=== PATIENT | female | born 1945 | race Caucasian/White ===

== ENCOUNTER 2017-08-02 02:47 | Emergency (ER) | payer MEDICARE, BC ==
--- NOTE | 2017-08-02 03:09 | EDM.PDOC ---
ED HPI GENERAL MEDICAL PROBLEM - General Chief Complaint: Respiratory Problem Stated Complaint: SICK Time Seen by Provider: 08/02/17 03:03 Source of Information: Reports: Patient, Family, RN Notes Reviewed History Limitations: Reports: No Limitations - History of Present Illness INITIAL COMMENTS - FREE TEXT/NARRATIVE: 71-year-old female presents emergency department today with a complaint of shortness of breath, she has a known history of chronic obstructive pulmonary disease usually uses oxygen at night she states over the last couple days she has gotten progressively more short of breath difficult for her to complete a full sentence. Denies any fevers chest pain nausea vomiting Denies Pain Score (Numeric/FACES): 0 - Related Data Allergies Allergy/AdvReac Type Severity Reaction Status Date / Time acetaminophen [From Tylenol] Allergy Shortness Verified 08/02/17 02:56 of Breath Sulfa (Sulfonamide Allergy Cannot Verified 08/02/17 02:56 Antibiotics) Remember lactose AdvReac Diarrhea Verified 08/02/17 02:56 Home Meds: Home Meds Calcium Carbonate [Calcium] 600 mg PO BID 05/04/14 [History] Aspirin [Adult Low Dose Aspirin EC] 81 mg PO DAILY 01/03/16 [History] Citalopram Hydrobromide [Celexa] 20 mg PO DAILY 01/03/16 [History] Clopidogrel [Plavix] 75 mg PO DAILY 01/03/16 [History] Naproxen Sodium [Aleve] 440 mg PO BID PRN 01/03/16 [History] atorvaSTATin [Lipitor] 20 mg PO BEDTIME 01/03/16 [History] Past Medical History Cardiovascular History: Reports: High Cholesterol, PVD, Other (See Below) Other Cardiovascular History: Dyslipidemia, cardiac stenosis Respiratory History: Reports: COPD, SOB Gastrointestinal History: Reports: Cholelithiasis Musculoskeletal History: Reports: Other (See Below) Other Musculoskeletal History: Hip fracture Neurological History: Reports: CVA - Infectious Disease History Infectious Disease History: Reports: Chicken Pox - Past Surgical History Cardiovascular Surgical History: Reports: Carotid Endarterectomy Musculoskeletal Surgical History: Reports: Hip Replacement Social & Family History - Family History Oncologic: Reports: Breast, Lung - Tobacco Use Smoking Status *Q: Current Every Day Smoker Years of Tobacco use: 39 Packs/Tins Daily: 0.2 Used Tobacco, but Quit: No Second Hand Smoke Exposure: Yes - Alcohol Use Days Per Week of Alcohol Use: 0 - Recreational Drug Use Recreational Drug Use: No ED ROS GENERAL - Review of Systems Review Of Systems: See Below Constitutional: Denies: Fever, Chills HEENT: Reports: No Symptoms Respiratory: Reports: Shortness of Breath, Wheezing, Cough, Sputum Cardiovascular: Reports: No Symptoms GI/Abdominal: Reports: No Symptoms : Reports: No Symptoms Musculoskeletal: Reports: No Symptoms ED EXAM, GENERAL - Physical Exam Exam: See Below Exam Limited By: No Limitations General Appearance: Alert, Mild Distress Head: Atraumatic, Normocephalic Neck: Normal Inspection, Supple, Non-Tender, Full Range of Motion Respiratory/Chest: Chest Non-Tender, Decreased Breath Sounds, Rhonchi, Wheezing , Accessory Muscle Use Cardiovascular: Regular Rate, Rhythm, No Murmur GI/Abdominal: Soft, Non-Tender Course - Vital Signs Last Recorded V/S: Last Vital Signs Temp 98.8 F 08/02/17 03:03 Pulse 90 08/02/17 03:03 Resp 24 H 08/02/17 03:03 BP 116/83 08/02/17 03:03 Pulse Ox 94 L 08/02/17 03:03 - Orders/Labs/Meds Orders: Active Orders 24 hr Category Date Time Status RT Aerosol Therapy [RC] ASDIRECTED Care 08/02/17 03:21 Active Chest 2V [CR] Urgent Exams 08/02/17 03:06 Taken Labs: Laboratory Tests 08/02/17 08/02/17 Range/Units 03:25 03:25 WBC 11.7 H (4.5-11.0) K/uL RBC 4.05 (3.30-5.50) M/uL Hgb 12.5 (12.0-15.0) g/dL Hct 39.0 (36.0-48.0) % MCV 96 (80-98) fL MCH 31 (27-31) pg MCHC 32 (32-36) % Plt Count 293 (150-400) K/uL Neut % (Auto) 61 (36-66) % Lymph % (Auto) 24 (24-44) % Terry % (Auto) 10 H (2-6) % Eos % (Auto) 5 H (2-4) % Baso % (Auto) 1 (0-1) % Sodium 139 L (140-148) mmol/L Potassium 4.2 (3.6-5.2) mmol/L Chloride 104 (100-108) mmol/L Carbon Dioxide 29 (21-32) mmol/L Anion Gap 10.2 (5.0-14.0) mmol/L BUN 17 D (7-18) mg/dL Creatinine 1.0 (0.6-1.0) mg/dL Est Cr Clr Drug Dosing 38.37 mL/min Estimated GFR (MDRD) 55 L (>60) Glucose 110 H (74-106) mg/dL Calcium 8.2 L (8.5-10.1) mg/dL Total Bilirubin 0.3 (0.2-1.0) mg/dL AST 13 L (15-37) U/L ALT 10 L (12-78) U/L Alkaline Phosphatase 77 (46-116) U/L Troponin I < 0.017 (0.000-0.056) ng/mL Total Protein 8.0 (6.4-8.2) g/dL Albumin 3.0 L (3.4-5.0) g/dL Globulin 5.0 H (2.3-3.5) g/dL Albumin/Globulin Ratio 0.6 L (1.2-2.2) Meds: Medications Discontinued Medications Generic Name Dose Route Start Last Admin Trade Name Freq PRN Reason Stop Dose Admin Albuterol/Ipratropium 3 ml 08/02/17 03:21 08/02/17 03:26 Duoneb 3.0-0.5 Mg/3 Ml NEB 08/02/17 03:22 3 ml ONETIME ONE Administration Departure - Departure Time of Disposition: 04:08 Disposition: Home, Self-Care 01 Condition: Fair Clinical Impression: COPD exacerbation - Discharge Information Referrals: Javed Ayala MD [Primary Care Provider] - Forms: ED Department Discharge Additional Instructions: Use the albuterol as needed for shortness of breath, take full course of antibiotics, Please followup with your primary care provider in 3-5 days if not better, please call return to the emergency department with worsening of symptoms. - My Orders Last 24 Hours: My Active Orders 08/02/17 03:06 Chest 2V [CR] Urgent 08/02/17 03:21 RT Aerosol Therapy [RC] ASDIRECTED - Assessment/Plan Last 24 Hours: My Active Orders 08/02/17 03:06 Chest 2V [CR] Urgent 08/02/17 03:21 RT Aerosol Therapy [RC] ASDIRECTED Plan: Assessment Acuity = acute Site and laterality = COPD exacerbation Etiology = unclear etiology Manifestations = hypoxia, dyspnea Location of injury = Home Lab values = WBC elevated 11.7 consistent leukocytosis, sodium low at 139 consistent hyponatremia albumin low at 2.0 consistent hypoalbuminemia, chest x- ray I did review films myself I cannot appreciate any acute process, the official read from radiology is pending Plan I did review lab work and chest x-ray results with her mother discharge home on doxycycline 7 day course in combination with albuterol inhaler have her follow- up with her primary care in 3-5 days for reevaluation discussed the possibilities of both short-term and long-term breathing treatments given her lung disease Patient was in agreement with the plan all questions were answered, they were instructed to return to the emergency department or call for worsening symptoms. This note was dictated using [employer] voice recognition software please call with any questions.
[2017-08-02] MEDS ORDERED: Albuterol/Ipratropium 3.0-0.5 MG/3 ML Neb Soln NEB ONE (03:21)
[2017-08-02 04:37] VITALS: BP 129/72
--- NOTE | 2017-08-05 08:22 | CR ---
Chest 2V HISTORY: Shortness of breath. COMPARISON: 01/03/2016. FINDINGS: Hyperinflation. The cardiac size is normal. No acute congestive change. No dense focal infi ltrate or effusion. Impression: Hyperinflation. No acute infiltrates.
== END 2017-08-02 04:50 | disposition home or self-care (01) ==
LOC: JP.ED 02:47
DX: J44.1 Chronic obstructive pulmonary disease with (acute) exacerbation (principal); E78.00 Pure hypercholesterolemia, unspecified; I73.9 Peripheral vascular disease, unspecified; Z96.649 Presence of unspecified artificial hip joint; F17.210 Nicotine dependence, cigarettes, uncomplicated; Z86.73 Personal history of transient ischemic attack (TIA), and cerebral infarction without residual deficits; Z98.890 Other specified postprocedural states; Z79.82 Long term (current) use of aspirin; Z79.899 Other long term (current) drug therapy; Z88.2 Allergy status to sulfonamides; Z91.011 Allergy to milk products; Z88.6 Allergy status to analgesic agent
CPT/HCPCS: 36415; 71020; 80053; 84484; 85025; 94640; 99284; J7620

== ENCOUNTER 2018-01-19 15:12 | Emergency (ER) | payer MEDICARE, BC ==
--- NOTE | 2018-01-19 16:27 | EDM.PDOC ---
ED HPI GENERAL MEDICAL PROBLEM - General Chief Complaint: Respiratory Problem Time Seen by Provider: 01/19/18 16:25 Source of Information: Reports: Patient History Limitations: Reports: No Limitations - History of Present Illness INITIAL COMMENTS - FREE TEXT/NARRATIVE: pt arrived with increased sob. She has no chest pain. She is coughing up green sputum. She has no pain when she takes a deep breath. Onset: Gradual, Other (past 2-3 daus. ) Duration: Hour(s): Location: Reports: Chest Associated Symptoms: Reports: Cough, Shortness of Breath, Other ( green sputum. ) - Related Data Allergies Allergy/AdvReac Type Severity Reaction Status Date / Time acetaminophen [From Tylenol] Allergy Shortness Verified 01/19/18 15:52 of Breath Sulfa (Sulfonamide Allergy Cannot Verified 01/19/18 15:52 Antibiotics) Remember lactose AdvReac Diarrhea Verified 01/19/18 15:52 Home Meds: Home Meds Aspirin [Adult Low Dose Aspirin EC] 81 mg PO DAILY 01/03/16 [History] Citalopram Hydrobromide [Celexa] 20 mg PO DAILY 01/03/16 [History] Clopidogrel [Plavix] 75 mg PO DAILY 01/03/16 [History] Naproxen Sodium [Aleve] 440 mg PO BID PRN 01/03/16 [History] atorvaSTATin [Lipitor] 20 mg PO BEDTIME 01/03/16 [History] Past Medical History HEENT History: Reports: Impaired Vision Cardiovascular History: Reports: High Cholesterol, PVD, Other (See Below) Other Cardiovascular History: Dyslipidemia, cardiac stenosis Respiratory History: Reports: Bronchitis, Recurrent, COPD, SOB Gastrointestinal History: Reports: Cholelithiasis 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: Musculoskeletal History: Reports: Other (See Below) Other Musculoskeletal History: Hip fracture Neurological History: Reports: CVA - Infectious Disease History Infectious Disease History: Reports: Chicken Pox - Past Surgical History HEENT Surgical History: Reports: Cataract Surgery, Tonsillectomy Cardiovascular Surgical History: Reports: Carotid Endarterectomy GI Surgical History: Reports: Appendectomy, Cholecystectomy, Colonoscopy, Hernia , Abdominal Female Surgical History: Reports: Breast Biopsy Musculoskeletal Surgical History: Reports: Hip Replacement Social & Family History - Family History Oncologic: Reports: Breast, Lung - Tobacco Use Smoking Status *Q: Current Every Day Smoker Years of Tobacco use: 40 Packs/Tins Daily: 0.5 Used Tobacco, but Quit: No Month Tobacco Last Used: January Second Hand Smoke Exposure: Yes - Caffeine Use Caffeine Use: Reports: Coffee - Alcohol Use Days Per Week of Alcohol Use: 0 - Recreational Drug Use Recreational Drug Use: No ED ROS GENERAL - Review of Systems Review Of Systems: See Below Constitutional: Reports: Malaise, Weakness HEENT: Reports: No Symptoms Respiratory: Reports: Shortness of Breath, Cough, Sputum Cardiovascular: Reports: No Symptoms Endocrine: Reports: No Symptoms GI/Abdominal: Reports: No Symptoms : Reports: No Symptoms ED EXAM, GENERAL - Physical Exam Exam: See Below Free Text/Narrative:: PT ARRIVED WITH A HISTORY OF HAVING INCREASED SOB AND BEING WHEEZY. sHE HAS BEEN RAISING GREEN SPUTUM. sHE HAS BEEN VERY SOB WITH ACTIVITY. sHE USES O2 WHEN SHE SLEEPS. B Exam Limited By: No Limitations General Appearance: Alert, Mild Distress Ears: Normal TMs Nose: Normal Inspection Throat/Mouth: Normal Inspection Head: Atraumatic Neck: Normal Inspection Respiratory/Chest: Decreased Breath Sounds, Rhonchi, Wheezing Cardiovascular: Regular Rate, Rhythm, Other (PT DOES NOT HAVE CHEST PAIN) GI/Abdominal: Soft, Non-Tender Rectal (Female) Exam: Deferred Back Exam: Normal Inspection Extremities: Other (PT DOES NOT HAVE EDEMA. ) Neurological: Alert, Oriented Psychiatric: Normal Affect Course - Vital Signs Last Recorded V/S: Last Vital Signs Temp 36.4 C 01/19/18 15:30 Pulse 75 01/19/18 15:52 Resp 28 H 01/19/18 15:52 BP 153/51 H 01/19/18 15:52 Pulse Ox 98 01/19/18 15:52 - Orders/Labs/Meds Orders: Active Orders 24 hr Category Date Time Status EKG Documentation Completion [RC] ASDIRECTED Care 01/19/18 17:16 Active RT Aerosol Therapy [RC] ASDIRECTED Care 01/19/18 18:36 Ordered Chest 2V [CR] Stat Exams 01/19/18 16:24 Taken cefTRIAXone [Rocephin] 1 gm Med 01/19/18 18:37 Ordered Sodium Chloride 0.9% [Normal Saline] 50 ml IV ONETIME EKG 12 Lead [EK] Routine Ther 01/19/18 17:15 Ordered Medication Orders Ceftriaxone Sodium 1 gm/ (Sodium Chloride) 50 mls @ 100 mls/hr IV ONETIME ONE Stop: 01/19/18 19:06 Labs: Laboratory Tests 01/19/18 01/19/18 01/19/18 Range/Units 16:34 16:34 17:10 WBC 9.9 (4.5-11.0) K/uL RBC 4.29 (3.30-5.50) M/uL Hgb 13.1 (12.0-15.0) g/dL Hct 41.2 (36.0-48.0) % MCV 96 (80-98) fL MCH 31 (27-31) pg MCHC 32 (32-36) % Plt Count 218 (150-400) K/uL Neut % (Auto) 76 H (36-66) % Lymph % (Auto) 15 L (24-44) % [place] % (Auto) 7 H (2-6) % Eos % (Auto) 1 L (2-4) % Baso % (Auto) 1 (0-1) % Sodium 136 L (140-148) mmol/L Potassium 4.4 (3.6-5.2) mmol/L Chloride 100 (100-108) mmol/L Carbon Dioxide 30 (21-32) mmol/L Anion Gap 10.4 (5.0-14.0) mmol/L BUN 16 (7-18) mg/dL Creatinine 0.9 (0.6-1.0) mg/dL Est Cr Clr Drug Dosing 39.99 mL/min Estimated GFR (MDRD) > 60 (>60) Glucose 90 (74-106) mg/dL Calcium 8.7 (8.5-10.1) mg/dL Total Bilirubin 0.5 D (0.2-1.0) mg/dL AST 16 (15-37) U/L ALT 14 (12-78) U/L Alkaline Phosphatase 65 (46-116) U/L Total Protein 7.3 (6.4-8.2) g/dL Albumin 3.2 L (3.4-5.0) g/dL Globulin 4.1 H (2.3-3.5) g/dL Albumin/Globulin Ratio 0.8 L (1.2-2.2) Urine Color Yellow Urine Appearance Slightly cloudy Urine pH 6.0 (4.5-8.0) Ur Specific [place] 1.020 (1.008-1.030) Urine Protein Negative (NEGATIVE) mg/dL Urine Glucose (UA) Normal (NEGATIVE) mg/dL Urine Ketones 15 H (NEGATIVE) mg/dL Urine Occult Blood Moderate (NEGATIVE) Urine Nitrite Negative (NEGATIVE) Urine Bilirubin Negative (NEGATIVE) Urine Urobilinogen Normal (NORMAL) mg/dL Ur Leukocyte Esterase Moderate (NEGATIVE) Urine RBC 5-10 H (0-5) Urine WBC 0-5 (0-5) Ur Epithelial Cells Moderate Amorphous Sediment Not seen Urine Bacteria Few Urine Mucus Moderate Meds: Medications Generic Name Dose Route Start Last Admin Trade Name Freq PRN Reason Stop Dose Admin Ceftriaxone Sodium 1 gm/ 50 mls @ 100 mls/hr 01/19/18 18:37 Sodium Chloride IV 01/19/18 19:06 ONETIME ONE Discontinued Medications Generic Name Dose Route Start Last Admin Trade Name Freq PRN Reason Stop Dose Admin Albuterol 2.5 mg 01/19/18 18:36 Proventil Neb Soln NEB 01/19/18 18:37 ONETIME ONE Triamcinolone Acetonide 60 mg 01/19/18 18:36 Kenalog-40 INJECT 01/19/18 18:37 ASDIRECTED ONE - Re-Assessments/Exams Free Text/Narrative Re-Assessment/Exam: 01/19/18 18:41 PT HAD A CHEST XRAY WHICH REVEALED NO DEFINITE INFILTRATE. . hER WBC IS NORMAL. SHE HAS HAD A NEBULIZER. 01/19/18 18:42 Departure - Departure Time of Disposition: 18:42 Disposition: Home, Self-Care 01 Condition: Fair Clinical Impression: Bronchitis, COPD exacerbation - Discharge Information Referrals: Javed Ayala MD [Primary Care Provider] - Forms: ED Department Discharge Care Plan Goals: PUSH FLUIDS, ZITHROMAX 500MG NOW AND 250 DAILY FOR THE NEXT 7 DAYS, ALBUTEROL INHALER 2 PUFFS TID, ROBITUSSIN AC 1 TSP Q 6H PRN FOR COUGH. RTC IF CONTINUED PROBLEMS. - My Orders Last 24 Hours: My Active Orders 01/19/18 16:24 Chest 2V [CR] Stat 01/19/18 18:36 RT Aerosol Therapy [RC] ASDIRECTED 01/19/18 18:37 cefTRIAXone [Rocephin] 1 gm Sodium Chloride 0.9% [Normal Saline] 50 ml IV ONETIME - Assessment/Plan Last 24 Hours: My Active Orders 01/19/18 16:24 Chest 2V [CR] Stat 01/19/18 18:36 RT Aerosol Therapy [RC] ASDIRECTED 01/19/18 18:37 cefTRIAXone [Rocephin] 1 gm Sodium Chloride 0.9% [Normal Saline] 50 ml IV ONETIME
[2018-01-19] MEDS ORDERED: Albuterol 0.083% 2.5 MG/3 ML Neb Soln NEB ONE (18:36)
[2018-01-19] MEDS ORDERED: cefTRIAXone 1 GM in Sodium Chloride 0.9% 50 ML IV ONE (18:37)
[2018-01-19 18:45] VITALS: BP 117/82
[2018-01-19] MEDS: Triamcinolone Acetonide 40 MG/ML 1 ML MDV INJECT ONE ×2 (18:54→18:56)
--- NOTE | 2018-01-20 09:09 | CR ---
Two-view chest Comparison: August 2017 There is hyperinflation. The heart and vascular structures are stable. There are chronic compression fractures of the thoracic spine. There is fibrosis in the left mid and lower lung [place]. Impression: 1. Hyperinflation. 2. No acute findings.
== END 2018-01-19 19:49 | disposition home or self-care (01) ==
LOC: JP.ED 15:12
DX: J44.1 Chronic obstructive pulmonary disease with (acute) exacerbation (principal); J40 Bronchitis, not specified as acute or chronic; E78.00 Pure hypercholesterolemia, unspecified; F17.210 Nicotine dependence, cigarettes, uncomplicated; Z88.6 Allergy status to analgesic agent; Z88.2 Allergy status to sulfonamides; Z91.011 Allergy to milk products; Z79.82 Long term (current) use of aspirin; Z79.899 Other long term (current) drug therapy
CPT/HCPCS: 36415; 71046; 80053; 81001; 85025; 93005; 94640; 96365; 96372; 99285; J0696; J3301; J7050; 99284

== ENCOUNTER 2019-10-23 10:57 | Emergency (ER) | payer MEDICARE ==
[2019-10-23 11:29] VITALS: BP 140/68; PULSE 80
--- NOTE | 2019-10-23 11:58 | EDM.PDOC ---
ED HPI GENERAL MEDICAL PROBLEM - General Chief Complaint: Laceration Stated Complaint: FELL AND HIT HEAD Time Seen by Provider: 10/23/19 11:45 Source of Information: Reports: Patient, Old Records, RN History Limitations: Reports: No Limitations - History of Present Illness INITIAL COMMENTS - FREE TEXT/NARRATIVE: 74 yo female was bending over to change a light bulb last night and lost her balance falling forward hitting the top of her head and directly impacting her lateral L shoulder. Denies LOC, nausea, or JAUREGUI. Has no pain at rest, but the L shoulder hurts when she tries to move that L arm. Was unable to get up, so slept on the floor until found by her daughter who brought her in for eval. Onset: Sudden Onset Date: 10/22/19 Onset Time: 22:00 Duration: Hour(s):, Constant Location: Reports: Upper Extremity, Left Quality: Reports: Ache Severity: Moderate Improves with: Reports: Rest Worsens with: Reports: Movement (L arm) Context: Reports: Trauma Associated Symptoms: Reports: No Other Symptoms Treatments PRODUCT SUPPORT REP: Reports: Other (see below) (none) left shoulder Pain Score (Numeric/FACES): 0 - Related Data Allergies Allergy/AdvReac Type Severity Reaction Status Date / Time acetaminophen [From Tylenol] Allergy Shortness Verified 10/23/19 11:18 of Breath Sulfa (Sulfonamide Allergy Cannot Verified 10/23/19 11:18 Antibiotics) Remember lactose AdvReac Diarrhea Verified 10/23/19 11:18 Home Meds: Home Meds Aspirin [Adult Low Dose Aspirin EC] 81 mg PO DAILY 01/03/16 [History] Citalopram Hydrobromide [Celexa] 20 mg PO DAILY 01/03/16 [History] Clopidogrel [Plavix] 75 mg PO DAILY 01/03/16 [History] Naproxen Sodium [Aleve] 440 mg PO BID PRN 01/03/16 [History] atorvaSTATin [Lipitor] 20 mg PO BEDTIME 01/03/16 [History] Albuterol Sulfate [Proair Hfa] 1 - 2 puff IH Q4H PRN 10/14/19 [History] Albuterol/Ipratropium [DuoNeb 3.0-0.5 MG/3 ML] 3 ml IH TID PRN 10/14/19 [History ] Past Medical History HEENT History: Reports: Impaired Vision Cardiovascular History: Reports: High Cholesterol, PVD, Other (See Below) Other Cardiovascular History: Dyslipidemia, cardiac stenosis Respiratory History: Reports: Bronchitis, Recurrent, COPD, SOB, Other (See Below ) Other Respiratory History: O2 at 2L Gastrointestinal History: Reports: Cholelithiasis 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: Musculoskeletal History: Reports: Other (See Below) Other Musculoskeletal History: Hip fracture Neurological History: Reports: CVA Oncologic (Cancer) History: Reports: Breast Dermatologic History: Reports: Other (See Below) Other Dermatologic History: Dry Skin - Infectious Disease History Infectious Disease History: Reports: Shingles - Past Surgical History HEENT Surgical History: Reports: Cataract Surgery, Tonsillectomy Cardiovascular Surgical History: Reports: Carotid Endarterectomy GI Surgical History: Reports: Appendectomy, Cholecystectomy, Colonoscopy, Hernia , Abdominal Female Surgical History: Reports: Breast Biopsy, Mastectomy Musculoskeletal Surgical History: Reports: Hip Replacement Social & Family History - Family History Oncologic: Reports: Breast, Lung - Tobacco Use Smoking Status *Q: Former Smoker Used Tobacco, but Quit: Yes Month/Year Tobacco Last Used: 10/19 - Caffeine Use Caffeine Use: Reports: Tea - Recreational Drug Use Recreational Drug Use: No ED ROS GENERAL - Review of Systems Review Of Systems: See Below Constitutional: Reports: No Symptoms HEENT: Reports: No Symptoms Respiratory: Reports: No Symptoms Cardiovascular: Reports: No Symptoms Endocrine: Reports: No Symptoms GI/Abdominal: Reports: No Symptoms : Reports: No Symptoms Musculoskeletal: Reports: Shoulder Pain (left) Skin: Reports: Wound (top of her head, minor laceration) Neurological: Reports: No Symptoms ED EXAM, SKIN/RASH Exam: See Below Exam Limited By: No Limitations General Appearance: Alert, WD/WN, No Apparent Distress Eye Exam: Bilateral Eye: Normal Inspection Ears: Normal External Exam, Normal Canal, Hearing Grossly Normal Nose: Normal Inspection, No Blood Throat/Mouth: Normal Inspection, Normal Lips, Normal Oropharynx, Normal Voice, No Airway Compromise Head: Other (small vertex scalp laceration, no active bleeding or scalp swelling ) Respiratory/Chest: No Respiratory Distress, Lungs Clear, No Accessory Muscle Use , Decreased Breath Sounds (consistent with her smoking history/COPD) Cardiovascular: Regular Rate, Rhythm, No Edema Back Exam: Normal Inspection. No: CVA Tenderness (R), CVA Tenderness (L) Extremities: Limited Range of Motion (due to pain), Other (tenderness to the L clavicle, ecchymosis of the lateral deltoid.) Neurological: Alert, Oriented, CN II-XII Intact, Normal Cognition, No Motor/ Sensory Deficits Skin: Warm, Dry, Intact, No Rash, Ecchymosis (deltoid region. Also R flank, but no crepitus or pain with breathing, coughing.), Wound/Incision (small lac to scalp, about 0.8 cm.). No: Increased Warmth Location, Skin: Head (laceration), Other (bruising deltoid region) Associated features: Tenderness Course - Vital Signs Last Recorded V/S: Last Vital Signs Temp 36.9 C 10/23/19 11:28 Pulse 80 10/23/19 11:28 Resp 20 10/23/19 11:28 BP 140/68 10/23/19 11:28 Pulse Ox 99 10/23/19 11:28 - Orders/Labs/Meds Orders: Active Orders 24 hr Category Date Time Status Vaccines to be Administered [RC] PER UNIT ROUTINE Care 10/23/19 12:05 Active Clavicle Lt [CR] Stat Exams 10/23/19 11:52 Taken CULTURE URINE [RM] Stat Lab 10/23/19 12:48 Received Labs: Laboratory Tests 10/23/19 Range/Units 12:29 Urine Color Yellow (YELLOW) Urine Appearance Clear (CLEAR) Urine pH 7.0 (5.0-8.0) Ur Specific [place] 1.015 (1.008-1.030) Urine Protein Negative (NEGATIVE) mg/dL Urine Glucose (UA) Negative (NEGATIVE) mg/dL Urine Ketones 15 H (NEGATIVE) mg/dL Urine Occult Blood Trace-intact H (NEGATIVE) Urine Nitrite Negative (NEGATIVE) Urine Bilirubin Negative (NEGATIVE) Urine Urobilinogen 0.2 (0.2-1.0) EU/dL Ur Leukocyte Esterase Trace H (NEGATIVE) Urine RBC 0-5 (0-5) Urine WBC 5-10 H (0-5) Ur Epithelial Cells Few Amorphous Sediment Not seen Urine Bacteria Moderate Urine Mucus Not seen Meds: Medications Discontinued Medications Generic Name Dose Route Start Last Admin Trade Name Freq PRN Reason Stop Dose Admin Diphtheria/Tetanus/Acell Pertussis 0.5 ml 10/23/19 12:05 10/23/19 12:34 Adacel IM 10/23/19 12:06 0.5 ml .ONCE ONE Administration - Radiology Interpretation Free Text/Narrative:: X-ray of L clavicle-neg X-ray of L shoulder-neg Departure - Departure Time of Disposition: 13:00 Disposition: Home, Self-Care 01 Condition: Fair Clinical Impression: Fall in elderly patient Contusion of left deltoid region Qualifiers: Encounter type: initial encounter Qualified Code(s): S40.012A - Contusion of left shoulder, initial encounter Scalp laceration Qualifiers: Encounter type: initial encounter Qualified Code(s): S01.01XA - Laceration without foreign body of scalp, initial encounter Contusion, flank Qualifiers: Encounter type: initial encounter Qualified Code(s): S30.1XXA - Contusion of abdominal wall, initial encounter - Discharge Information *PRESCRIPTION DRUG MONITORING PROGRAM REVIEWED*: No *COPY OF PRESCRIPTION DRUG MONITORING REPORT IN PATIENT CORY: No Referrals: Javed Ayala MD [Primary Care Provider] - Forms: ED Department Discharge Additional Instructions: Take acetaminophen as needed for pain relief. Wear the sling for L arm support as needed. If you cannot move your left shoulder normally by next /Friday then see your provider for recheck(? rotator cuff injury). We cultured your urine due to the presence of a few white blood cells, if an infection is identified we will contact you. - My Orders Last 24 Hours: My Active Orders 10/23/19 11:52 Clavicle Lt [CR] Stat 10/23/19 12:05 Vaccines to be Administered [RC] PER UNIT ROUTINE 10/23/19 12:48 CULTURE URINE [RM] Stat - Assessment/Plan Last 24 Hours: My Active Orders 10/23/19 11:52 Clavicle Lt [CR] Stat 10/23/19 12:05 Vaccines to be Administered [RC] PER UNIT ROUTINE 10/23/19 12:48 CULTURE URINE [RM] Stat
[2019-10-23] MEDS ORDERED: Diphtheria,Pertussis(Acell),Tetanus Vaccine 0.5 ML SDV IM ONE (12:05)
--- NOTE | 2019-10-23 12:53 | CRLCR ---
INDICATION: fall COMPARISON: None. FINDINGS: Three views of the left shoulder demonstrate mild osteopenia. Normal alignment. The glenohumeral and AC joints are intact. Skin diego project over the right lower thorax. Soft tissues are unremarkable. IMPRESSION: No acute osseous abnormality. Dictated by Jcarlos Linares MD @ 10/23/2019 12:52:33 PM Dictated by: Jcarlos Linares MD @ 10/23/2019 12:52:39 (Electronically Signed)
[2019-10-23] MEDS ORDERED: Bacitracin Oint 1 GM U/D Packet TOP ONE (12:54)
--- NOTE | 2019-10-23 13:21 | CRLCR ---
Indication: Fall. Technique: Left clavicle two views. Comparison: Left shoulder same day. Findings: No acute fracture or dislocation. Bone demineralization, as before. No additional osseous abnormality. Soft tissues as imaged are unremarkable. Impression: No acute osseous abnormality. Dictated by Damien Turner MD @ Oct 23 2019 1:18PM Signed by Dr. Damien Turner @ Oct 23 2019 1:21PM
== END 2019-10-23 13:31 | disposition home or self-care (01) ==
LOC: JP.ED 10:57
DX: S01.01XA Laceration without foreign body of scalp, initial encounter (principal); S40.012A Contusion of left shoulder, initial encounter; S30.1XXA Contusion of abdominal wall, initial encounter; E78.00 Pure hypercholesterolemia, unspecified; J44.9 Chronic obstructive pulmonary disease, unspecified; Z79.82 Long term (current) use of aspirin; Z79.02 Long term (current) use of antithrombotics/antiplatelets; Z86.73 Personal history of transient ischemic attack (TIA), and cerebral infarction without residual deficits; Z79.899 Other long term (current) drug therapy; Z87.891 Personal history of nicotine dependence; Z88.6 Allergy status to analgesic agent; Z88.2 Allergy status to sulfonamides; Z91.011 Allergy to milk products; Z23 Encounter for immunization; W01.10XA Fall on same level from slipping, tripping and stumbling with subsequent striking against unspecified object, initial encounter; Y93.89 Activity, other specified
CPT/HCPCS: 73000-LT; 73030-LT; 81001; 87086; 90471; 90715; 99283; 99283-25

== ENCOUNTER 2021-01-21 19:44 | Emergency (ER) | payer MEDICARE ==
[2021-01-21 20:16] VITALS: BP 128/55; PULSE 71
[2021-01-21] MEDS ORDERED: cefTRIAXone 1 GM Vial IM ONE (21:20)
--- NOTE | 2021-01-21 21:24 | EDM.PDOC ---
ED HPI GENERAL MEDICAL PROBLEM - General Chief Complaint: Skin Complaint Stated Complaint: BOILS/CONCERNS ABOUT SEPSIS BECAUSE OF COPD Time Seen by Provider: 01/21/21 21:26 Source of Information: Reports: Patient History Limitations: Reports: No Limitations - History of Present Illness INITIAL COMMENTS - FREE TEXT/NARRATIVE: pt arrived with a nmarkedly swollen rt facial area. This is very tender. This looks like a early abcess but not ready to drain. Onset: Gradual, Other ( last 2 days. ) Duration: Hour(s): Location: Reports: Face Associated Symptoms: Reports: Other ( facial infection) Right Cheek Pain Score (Numeric/FACES): 5 - Related Data Allergies Allergy/AdvReac Type Severity Reaction Status Date / Time acetaminophen [From Tylenol] Allergy Shortness Verified 01/21/21 20:20 of Breath Sulfa (Sulfonamide Allergy Cannot Verified 01/21/21 20:20 Antibiotics) Remember lactose AdvReac Diarrhea Verified 01/21/21 20:20 Home Meds: Home Meds Aspirin [Adult Low Dose Aspirin EC] 81 mg PO DAILY 01/03/16 [History] Citalopram Hydrobromide [Celexa] 20 mg PO DAILY 01/03/16 [History] Clopidogrel [Plavix] 75 mg PO DAILY 01/03/16 [History] Naproxen Sodium [Aleve] 440 mg PO BID PRN 01/03/16 [History] atorvaSTATin [Lipitor] 20 mg PO BEDTIME 01/03/16 [History] Albuterol Sulfate [Proair Hfa] 1 - 2 puff IH Q4H PRN 10/14/19 [History] Albuterol/Ipratropium [DuoNeb 3.0-0.5 MG/3 ML] 3 ml IH TID PRN 10/14/19 [History] Past Medical History HEENT History: Reports: Impaired Vision Cardiovascular History: Reports: High Cholesterol, PVD, Other (See Below) Other Cardiovascular History: Dyslipidemia, cardiac stenosis Respiratory History: Reports: Bronchitis, Recurrent, COPD, SOB, Other (See Below) Other Respiratory History: O2 at 2L Gastrointestinal History: Reports: Cholelithiasis CLINIC MGR History: Reports: Musculoskeletal History: Reports: Other (See Below) Other Musculoskeletal History: Hip fracture Neurological History: Reports: CVA Oncologic (Cancer) History: Reports: Breast Dermatologic History: Reports: Other (See Below) Other Dermatologic History: Dry Skin - Infectious Disease History Infectious Disease History: Reports: Shingles - Past Surgical History HEENT Surgical History: Reports: Cataract Surgery, Tonsillectomy Cardiovascular Surgical History: Reports: Carotid Endarterectomy GI Surgical History: Reports: Appendectomy, Cholecystectomy, Colonoscopy, Hernia, Abdominal Female Surgical History: Reports: Breast Biopsy, Mastectomy Musculoskeletal Surgical History: Reports: Hip Replacement Social & Family History - Family History Oncologic: Reports: Breast, Lung - Tobacco Use Tobacco Use Status *Q: Former Tobacco User Used Tobacco, but Quit: Yes Month/Year Tobacco Last Used: 2020 - Caffeine Use Caffeine Use: Reports: None - Recreational Drug Use Recreational Drug Use: No ED ROS GENERAL - Review of Systems Review Of Systems: See Below Constitutional: Reports: No Symptoms HEENT: Reports: Other ( swelling of rt facial area. ) Respiratory: Reports: Shortness of Breath, Other ( chronic copd) Cardiovascular: Reports: No Symptoms Endocrine: Reports: No Symptoms GI/Abdominal: Reports: No Symptoms : Reports: No Symptoms Musculoskeletal: Reports: No Symptoms Skin: Reports: Other ( abcess in the rt axilla and rt facial area. ) ED EXAM, SKIN/RASH Exam: See Below Text/Narrative:: pt arrived with marked swelling of the rt fascial area. Exam Limited By: No Limitations General Appearance: Alert, Anxious, Moderate Distress Ears: Normal TMs Nose: Normal Inspection Throat/Mouth: Normal Inspection Head: Atraumatic, Facial Swelling, Other (pt is very tender and has sig swellin of rt facial area. ) Neck: Normal Inspection Respiratory/Chest: No Respiratory Distress Cardiovascular: Regular Rate, Rhythm GI/Abdominal: Soft, Non-Tender Rectal (Female) Exam: Normal Exam Back Exam: Normal Inspection Extremities: Other (pt has abcess formation in the rt axilla. ) Course - Vital Signs Last Recorded V/S: Last Vital Signs Temp 36.6 C 01/21/21 20:17 Pulse 71 01/21/21 20:17 Resp 16 01/21/21 20:17 BP 128/55 L 01/21/21 20:17 Pulse Ox 98 01/21/21 20:17 - Orders/Labs/Meds Meds: Medications Discontinued Medications Generic Name Dose Route Start Last Admin Trade Name Freq PRN Reason Stop Dose Admin Ceftriaxone Sodium 1 gm 01/21/21 21:20 Rocephin IM 01/21/21 21:21 ONETIME ONE Lidocaine HCl 5 ml 01/21/21 21:21 Xylocaine-Mpf 1% INJECT 01/21/21 21:22 ONETIME ONE - Re-Assessments/Exams Free Text/Narrative Re-Assessment/Exam: 01/21/21 21:30 pt was given rocephen 1 gm im. Departure - Departure Time of Disposition: 21:21 Disposition: Home, Self-Care 01 Condition: Fair Clinical Impression: Facial abscess, Abscess, axilla - Discharge Information Referrals: Javed Ayala MD [Primary Care Provider] - Forms: ED Department Discharge Care Plan Goals: moist warm packs to rt facial area, -- use warm packs frequently, appt with Dr Ayala friday. this may need to be opened. clindomycin 300mg tid push fluids. Sepsis Event Note (ED) - Evaluation Sepsis Screening Result: No Definite Risk - Focused Exam Vital Signs: Vital Signs Temp Pulse Resp BP Pulse Ox 01/21/21 20:17 36.6 C 71 16 128/55 L 98 01/21/21 20:15 36.6 C 71 16 128/55 L 98
== END 2021-01-21 21:57 | disposition home or self-care (01) ==
LOC: JP.ED 19:44
DX: L02.01 Cutaneous abscess of face (principal); L02.411 Cutaneous abscess of right axilla; E78.00 Pure hypercholesterolemia, unspecified; J44.9 Chronic obstructive pulmonary disease, unspecified; Z86.73 Personal history of transient ischemic attack (TIA), and cerebral infarction without residual deficits; Z87.891 Personal history of nicotine dependence; Z88.6 Allergy status to analgesic agent; Z88.2 Allergy status to sulfonamides; Z91.011 Allergy to milk products; Z79.02 Long term (current) use of antithrombotics/antiplatelets; Z79.82 Long term (current) use of aspirin; Z79.899 Other long term (current) drug therapy
CPT/HCPCS: 96372; 99283; J0696

== ENCOUNTER 2021-07-11 20:42 | Inpatient (IN) | payer MEDICARE ==
[2021-07-11] MEDS ORDERED: Albuterol 0.083% 2.5 MG/3 ML Neb Soln NEB ONE (21:57)
[2021-07-11] MEDS ORDERED: Sodium Chloride 0.9% 1,000 ML IV SCH (22:15)
[2021-07-11] MEDS ORDERED: Doxycycline 100 MG in Sodium Chloride 0.9% 100 ML IV SCH (22:45)
--- NOTE | 2021-07-12 00:07 | EDM.PDOC ---
ED HPI GENERAL MEDICAL PROBLEM - General Chief Complaint: Respiratory Problem Stated Complaint: SOB, HISTORY OF COPD Time Seen by Provider: 07/11/21 21:51 Source of Information: Reports: Patient, Family (Daughter Rani) History Limitations: Reports: Altered Mental Status (Daughter reports has been confused today which is not normal) - History of Present Illness INITIAL COMMENTS - FREE TEXT/NARRATIVE: chief complaint: shortness of breath This is a 75 year old female presents to the ER with Daughter Rani, who gives report of today illness. Mrs. Guzman lives alone and has a SENIOR ANALYST DEVELOPER for 4 hours 3 times a week. Today when check on her Mom after work- she was confused, lethargic, oxygen saturation were 77 % on 2liter nasal canula. She was given nebulizer treatments without improved. Her Daughter brought her to the ER for evaluation. Onset of symptoms- Friday night- 5 days ago had shortness of breath, smokes 4 cigarettes per day, has daily home oxygen at 2 liter [place] last meal at 3:30 pm ate a piece of toast last - this afternoon Last Doctor visit- seen 4 days ago- for ear infection- given Augment 875 mg po bid history of MRSA infection of ear canal Onset: Gradual Onset Date: 07/07/21 Duration: Getting Worse Location: Reports: Chest, Generalized Quality: Reports: Ache Severity: Mild Improves with: Reports: None Worsens with: Reports: None Context: Reports: Other (COPD with continue Tobacco use.) Associated Symptoms: Reports: Confusion, Fever/Chills (temp on 100 today), Loss of Appetite, Malaise, Shortness of Breath, Weakness Treatments 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 Treatments - Related Data Allergies Allergy/AdvReac Type Severity Reaction Status Date / Time acetaminophen [From Tylenol] Allergy Shortness Verified 07/11/21 21:31 of Breath Sulfa (Sulfonamide Allergy Cannot Verified 07/11/21 21:31 Antibiotics) Remember lactose AdvReac Diarrhea Verified 07/11/21 21:31 Home Meds: Home Meds Aspirin [Adult Low Dose Aspirin EC] 81 mg PO DAILY 01/03/16 [History] Citalopram Hydrobromide [Celexa] 20 mg PO DAILY 01/03/16 [History] Clopidogrel [Plavix] 75 mg PO DAILY 01/03/16 [History] atorvaSTATin [Lipitor] 20 mg PO BEDTIME 01/03/16 [History] Albuterol Sulfate [Proair Hfa] 1 - 2 puff IH Q4H PRN 10/14/19 [History] Albuterol/Ipratropium [DuoNeb 3.0-0.5 MG/3 ML] 3 ml IH Q4H PRN 10/14/19 [History] Amoxicillin/Clavulanate K [Augmentin 875-125 MG] 1 tab PO BID 07/11/21 [History] Calcium Carb/Vit D3/Minerals [Calcium 600+D Plus Minerals] 1 tab PO BID 07/11/21 [History] Multivit with Calcium,Iron,Min [One Daily Women's] 1 tab PO DAILY 07/11/21 [History] traMADol [Ultram] 1 tab PO Q6H PRN 07/11/21 [History] Past Medical History HEENT History: Reports: Impaired Vision Cardiovascular History: Reports: High Cholesterol, PVD, Other (See Below) Other Cardiovascular History: Dyslipidemia, cardiac stenosis Respiratory History: Reports: Bronchitis, Recurrent, COPD, SOB, Other (See B elow) Other Respiratory History: O2 at 2L Gastrointestinal History: Reports: Cholelithiasis 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: 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: Musculoskeletal History: Reports: Osteoporosis, Other (See Below) Other Musculoskeletal History: Hip fracture, right jaw fracture Neurological History: Reports: CVA Oncologic (Cancer) History: Reports: Breast Dermatologic History: Reports: Other (See Below) Other Dermatologic History: Dry Skin - Infectious Disease History 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, Other, Shingles - Past Surgical History HEENT Surgical History: Reports: Cataract Surgery, Tonsillectomy Cardiovascular Surgical History: Reports: Carotid Endarterectomy GI Surgical History: Reports: Appendectomy, Cholecystectomy, Colonoscopy, Hernia, Abdominal Female Surgical History: Reports: Breast Biopsy, Mastectomy Musculoskeletal Surgical History: Reports: Hip Replacement Social & Family History - Family History Family Medical History: No Pertinent Family History Oncologic: Reports: Breast, Lung - Tobacco Use Tobacco Use Status *Q: Current Every Day Tobacco User Years of Tobacco use: 60 Packs/Tins Daily: 0.2 - Caffeine Use Caffeine Use: Reports: None - Recreational Drug Use Recreational Drug Use: No - Living Situation & Occupation Living situation: Reports: ( 5 years ago, lives alone with SENIOR ANALYST DEVELOPER assistance 3 times a week. Has 3 adult children. Daughter Rani assist with care decisions.) ED ROS GENERAL - Review of Systems Review Of Systems: See Below Constitutional: Reports: Fever, Chills, Malaise, Weakness, Fatigue, Decreased Appetite HEENT: Reports: Glasses, Other (upper and lower dentures) Respiratory: Reports: Shortness of Breath, Wheezing, Pleuritic Chest Pain, Cough, Sputum Cardiovascular: Reports: No Symptoms Endocrine: Reports: Fatigue GI/Abdominal: Reports: No Symptoms : Reports: No Symptoms Musculoskeletal: Reports: No Symptoms Skin: Reports: No Symptoms Neurological: Reports: No Symptoms Psychiatric: Reports: No Symptoms Hematologic/Lymphatic: Reports: No Symptoms Immunologic: Reports: No Symptoms ED EXAM, GENERAL - Physical Exam Exam: See Below Exam Limited By: Respiratory Distress General Appearance: Alert, Mild Distress, Thin (bony, very thin age appearance), Other (raspy voice. speaking in short sentences.) Eye Exam: Bilateral Eye: EOMI, PERRL Ears: Normal External Exam, Other (right ear canal with copious amount of pale discharge-tender to exam) Ear Exam: Right Ear: Discharge, Tenderness, Left Ear: TM normal Nose: Normal Inspection, Normal Mucosa, No Blood Throat/Mouth: Normal Inspection, Normal Lips, Normal Teeth, Normal Gums, Normal Oropharynx, No Airway Compromise. No: Normal Voice (raspy voice) Head: Atraumatic, Normocephalic Neck: Normal Inspection, Supple, Non-Tender, Full Range of Motion Respiratory/Chest: Decreased Breath Sounds, Wheezing (bilateral), Accessory Muscle Use, Prolonged Expiration Cardiovascular: Normal Peripheral Pulses, Regular Rate, Rhythm, No Edema, No Gallop Peripheral Pulses: 2+: Radial (L), Radial (R), Dorsalis Pedis (L), Dorsalis Pedis (R) GI/Abdominal: Normal Bowel Sounds, Soft, Non-Tender, No Organomegaly, No Distention, No Abnormal Bruit, No Mass (Female) Exam: Deferred Rectal (Female) Exam: Deferred Back Exam: Normal Inspection, Full Range of Motion Extremities: Normal Inspection, Normal Range of Motion, Non-Tender, Normal Capillary Refill, No Pedal Edema Neurological: Alert, Oriented, CN II-XII Intact, Normal Cognition, Normal Gait, Normal Reflexes, No Motor/Sensory Deficits Psychiatric: Normal Affect, Normal Mood Skin Exam: Warm, Dry, Intact, Normal Color, No Rash Lymphatic: No Adenopathy Course - Vital Signs Last Recorded V/S: Last Vital Signs Temp 98.2 F 07/11/21 21:37 Pulse 72 07/11/21 23:19 Resp 18 07/11/21 23:19 BP 112/37 L 07/11/21 23:19 Pulse Ox 92 L 07/11/21 23:19 - Orders/Labs/Meds Orders: Active Orders 24 hr Category Date Time Status Cardiac Monitoring Discontinue [RC] Click to Edit Care 07/11/21 21:58 Active RT Aerosol Therapy [RC] ASDIRECTED Care 07/11/21 21:59 Active Vital Signs [RC] Q1H Care 07/11/21 22:40 Active Chest 1V Frontal [CR] Urgent Exams 07/11/21 21:58 Taken CULTURE BLOOD [BC] Urgent Lab 07/11/21 22:35 Received CULTURE BLOOD [BC] Urgent Lab 07/11/21 23:00 Received UA W/MICROSCOPIC [URIN] Urgent Lab 07/11/21 21:58 Ordered Doxycycline [Vibramycin] 100 mg Med 07/11/21 22:45 Active Sodium Chloride 0.9% [Normal Saline] 100 ml IV Q12H Sodium Chloride 0.9% [Normal Saline] 1,000 ml Med 07/11/21 22:15 Active IV ASDIRECTED cefTRIAXone [Rocephin] 1 gm Med 07/11/21 23:00 Active Sodium Chloride 0.9% [Normal Saline] 50 ml IV Q24H Blood Culture x2 Reflex Set [OM.PC] Urgent Oth 07/11/21 21:57 Ordered Medication Orders Sodium Chloride (Normal Saline) 1,000 mls @ 125 mls/hr IV ASDIRECTED DEXTER Last Admin: 07/11/21 23:10 Dose: 125 mls/hr Documented by: ASUNCION Ceftriaxone Sodium 1 gm/ (Sodium Chloride) 50 mls @ 100 mls/hr IV Q24H DEXTER Doxycycline Hyclate 100 mg/ (Sodium Chloride) 100 mls @ 100 mls/hr IV Q12H DEXTER Last Admin: 07/11/21 23:17 Dose: 100 mls/hr Documented by: AUSNCION Labs: Laboratory Tests 07/11/21 07/11/21 07/11/21 Range/Units 22:50 22:50 22:50 WBC 10.1 (4.5-11.0) K/uL RBC 3.86 (3.30-5.50) M/uL Hgb 12.0 D (12.0-15.0) g/dL Hct 38.5 (36.0-48.0) % MCV 100 H (80-98) fL MCH 31 (27-31) pg MCHC 31 L (32-36) % Plt Count 233 (150-400) K/uL Neut % (Auto) 73.7 H (36-66) % Lymph % (Auto) 18.6 L (24-44) % [place] % (Auto) 5.8 (2-6) % Eos % (Auto) 1.3 L (2-4) % Baso % (Auto) 0.6 (0-1) % ABG Hemoglobin (12.0-16.0) g/dL ABG Oxyhemoglobin % ABG Carboxyhemoglobin (0.0-1.6) % ABG Methemoglobin % VBG pH (7.350-7.450) VBG pCO2 mm/Hg VBG pO2 mm/Hg VBG HCO3 mmol/L VBG Total CO2 mmol/L VBG O2 Saturation VBG O2 Content %vol VBG Base Excess mm/L O2 Delivery Device Sodium 134 L (140-148) mmol/L Potassium 5.2 (3.6-5.2) mmol/L Chloride 97 L (100-108) mmol/L Carbon Dioxide 31 (21-32) mmol/L Anion Gap 11.2 (5.0-14.0) mmol/L BUN 28 H D (7-18) mg/dL Creatinine 1.0 (0.6-1.0) mg/dL Est Cr Clr Drug Dosing 34.38 mL/min Estimated GFR (MDRD) 54 L (>60) Glucose 85 (74-106) mg/dL Lactic Acid 1.2 (0.4-2.0) mmol/L Calcium 8.6 (8.5-10.1) mg/dL Magnesium 2.2 (1.8-2.4) mg/dL Total Bilirubin 0.3 (0.2-1.0) mg/dL AST 16 (15-37) U/L ALT 17 (12-78) U/L Alkaline Phosphatase 69 (46-116) U/L C-Reactive Protein (0.0-0.3) mg/dL Total Protein 7.5 (6.4-8.2) g/dL Albumin 2.9 L (3.4-5.0) g/dL Globulin 4.6 H (2.3-3.5) g/dL Albumin/Globulin Ratio 0.6 L (1.2-2.2) Amylase 45 (25-115) U/L Lipase 42 L (73-393) U/L 07/11/21 07/11/21 Range/Units 22:50 23:00 WBC (4.5-11.0) K/uL RBC (3.30-5.50) M/uL Hgb (12.0-15.0) g/dL Hct (36.0-48.0) % MCV (80-98) fL MCH (27-31) pg MCHC (32-36) % Plt Count (150-400) K/uL Neut % (Auto) (36-66) % Lymph % (Auto) (24-44) % [place] % (Auto) (2-6) % Eos % (Auto) (2-4) % Baso % (Auto) (0-1) % ABG Hemoglobin 11.9 L (12.0-16.0) g/dL ABG Oxyhemoglobin 54.7 % ABG Carboxyhemoglobin 1.2 (0.0-1.6) % ABG Methemoglobin 0.6 % VBG pH 7.383 (7.350-7.450) VBG pCO2 53.0 mm/Hg VBG pO2 31.9 mm/Hg VBG HCO3 30.9 mmol/L VBG Total CO2 28.4 mmol/L VBG O2 Saturation 55.7 VBG O2 Content 9.2 %vol VBG Base Excess 5.1 mm/L O2 Delivery Device Nasal cannula Sodium (140-148) mmol/L Potassium (3.6-5.2) mmol/L Chloride (100-108) mmol/L Carbon Dioxide (21-32) mmol/L Anion Gap (5.0-14.0) mmol/L BUN (7-18) mg/dL Creatinine (0.6-1.0) mg/dL Est Cr Clr Drug Dosing mL/min Estimated GFR (MDRD) (>60) Glucose (74-106) mg/dL Lactic Acid (0.4-2.0) mmol/L Calcium (8.5-10.1) mg/dL Magnesium (1.8-2.4) mg/dL Total Bilirubin (0.2-1.0) mg/dL AST (15-37) U/L ALT (12-78) U/L Alkaline Phosphatase (46-116) U/L C-Reactive Protein 2.17 H (0.0-0.3) mg/dL Total Protein (6.4-8.2) g/dL Albumin (3.4-5.0) g/dL Globulin (2.3-3.5) g/dL Albumin/Globulin Ratio (1.2-2.2) Amylase (25-115) U/L Lipase (73-393) U/L Meds: Medications Generic Name Dose Route Start Last Admin Trade Name Freq PRN Reason Stop Dose Admin Sodium Chloride 1,000 mls @ 125 mls/hr 07/11/21 22:15 07/11/21 23:10 Normal Saline IV 125 mls/hr ASDIRECTED DEXTER Administration Ceftriaxone Sodium 1 gm/ 50 mls @ 100 mls/hr 07/11/21 23:00 Sodium Chloride IV Q24H DEXTER Doxycycline Hyclate 100 mg/ 100 mls @ 100 mls/hr 07/11/21 22:45 07/11/21 23:17 Sodium Chloride IV 100 mls/hr Q12H DEXTER Administration Discontinued Medications Generic Name Dose Route Start Last Admin Trade Name Freq PRN Reason Stop Dose Admin Albuterol 2.5 mg 07/11/21 21:57 07/11/21 22:21 Albuterol 0.083% 2.5 Mg/3 Ml Neb Soln NEB 07/11/21 21:58 2.5 mg ONETIME ONE Administration - Re-Assessments/Exams Free Text/Narrative Re-Assessment/Exam: 07/12/21 discussed with Mrs. Guzman and Daughter Rani will do labs, xray, IV fluids, medications will plan to admit to hospital with COPD exacerbation rule out pneumonia not safe to discharge to home with her current events of today- low oxygen saturations, low grade fever, shortness of breath and confusion They both agree with plan of care. 07/12/21 00:23 chest xray no infiltrates noted labs WBC 07/12/21 00:25 will admit to [address] [place] [address] with COPD exacerbation and MRSA infection of right ear canal patient agrees with plan of care Departure - Departure Time of Disposition: 00:29 Disposition: Admitted As Inpatient 65 Condition: Fair Clinical Impression: COPD exacerbation, Infection of right inner ear, Tobacco dependence COPD (chronic obstructive pulmonary disease) Qualifiers: COPD type: unspecified COPD Qualified Code(s): J44.9 - Chronic obstructive pulmonary disease, unspecified - Discharge Information *PRESCRIPTION DRUG MONITORING PROGRAM REVIEWED*: Not Applicable *COPY OF PRESCRIPTION DRUG MONITORING REPORT IN PATIENT CORY: Not Applicable Referrals: PCP,None [Primary Care Provider] - Sepsis Event Note (ED) - Evaluation Sepsis Screening Result: No Definite Risk - Focused Exam Vital Signs: Vital Signs Temp Pulse Resp BP Pulse Ox 07/11/21 23:19 72 18 112/37 L 92 L 07/11/21 22:00 72 12 104/48 L 93 L 07/11/21 21:37 98.2 F 71 18 108/51 L 90 L 07/11/21 21:31 98.2 F 71 18 108/51 L 90 L - My Orders Last 24 Hours: My Active Orders 07/11/21 21:57 Blood Culture x2 Reflex Set [OM.PC] Urgent 07/11/21 21:58 Cardiac Monitoring Discontinue [RC] Click to Edit Chest 1V Frontal [CR] Urgent UA W/MICROSCOPIC [URIN] Urgent 07/11/21 21:59 RT Aerosol Therapy [RC] ASDIRECTED 07/11/21 22:15 Sodium Chloride 0.9% [Normal Saline] 1,000 ml IV ASDIRECTED 07/11/21 22:35 CULTURE BLOOD [BC] Urgent 07/11/21 22:40 Vital Signs [RC] Q1H 07/11/21 22:45 Doxycycline [Vibramycin] 100 mg Sodium Chloride 0.9% [Normal Saline] 100 ml IV Q12H 07/11/21 23:00 CULTURE BLOOD [BC] Urgent cefTRIAXone [Rocephin] 1 gm Sodium Chloride 0.9% [Normal Saline] 50 ml IV Q24H - Assessment/Plan Last 24 Hours: My Active Orders 07/11/21 21:57 Blood Culture x2 Reflex Set [OM.PC] Urgent 07/11/21 21:58 Cardiac Monitoring Discontinue [RC] Click to Edit Chest 1V Frontal [CR] Urgent UA W/MICROSCOPIC [URIN] Urgent 07/11/21 21:59 RT Aerosol Therapy [RC] ASDIRECTED 07/11/21 22:15 Sodium Chloride 0.9% [Normal Saline] 1,000 ml IV ASDIRECTED 07/11/21 22:35 CULTURE BLOOD [BC] Urgent 07/11/21 22:40 Vital Signs [RC] Q1H 07/11/21 22:45 Doxycycline [Vibramycin] 100 mg Sodium Chloride 0.9% [Normal Saline] 100 ml IV Q12H 07/11/21 23:00 CULTURE BLOOD [BC] Urgent cefTRIAXone [Rocephin] 1 gm Sodium Chloride 0.9% [Normal Saline] 50 ml IV Q24H
[2021-07-12] MEDS: cefTRIAXone 1 GM in Sodium Chloride 0.9% 50 ML IV SCH ×2 (00:13→22:32)
--- NOTE | 2021-07-12 00:53 | PCM.HP.2 ---
H&P History of Present Illness - General Date of Service: 07/11/21 Admit Problem/Dx: Admission Diagnosis/Problem Admission Diagnosis/Problem COPD, Severe chronic obstructive pulmonary disease Source of Information: Patient, Family (Daughter Rani) History Limitations: Reports: Altered Mental Status, Respiratory Distress - History of Present Illness Initial Comments - Free Text/Narative: INITIAL COMMENTS - FREE TEXT/NARRATIVE: chief complaint: shortness of breath This is a 75 year old female presents to the ER with Daughter Rani, who gives report of today illness. Mrs. Guzman lives alone and has a PHYSICIAN ASSISTANT CERTIFIED for 4 hours 3 times a week. Today when check on her Mom after work- she was confused, lethargic, oxygen saturation were 77 % on 2liter nasal canula. She was given nebulizer treatments without improved. Her Daughter brought her to the ER for evaluation. Onset of symptoms- Friday night- 5 days ago had shortness of breath, smokes 4 cigarettes per day, has daily home oxygen at 2 liter [place] last meal at 3:30 pm ate a piece of toast last - this afternoon Last Doctor visit- seen 4 days ago- for ear infection- given Augment 875 mg po bid history of MRSA infection of ear canal Onset of Symptoms: Reports: Today, Gradual Duration of Symptoms: Reports: Getting Worse Location: Reports: Generalized Quality: Reports: Ache, Burning Severity: Moderate Improves with: Reports: Medication Worsens with: Reports: None Context: Reports: Other (COPD) Associated Symptoms: Reports: Confusion, Cough, Fever/Chills, Loss of Appetite, Shortness of Breath, Weakness - Related Data Allergies/Adverse Reactions: Allergies Allergy/AdvReac Type Severity Reaction Status Date / Time acetaminophen [From Tylenol] Allergy Shortness Verified 07/11/21 21:31 of Breath Sulfa (Sulfonamide Allergy Cannot Verified 07/11/21 21:31 Antibiotics) Remember lactose AdvReac Diarrhea Verified 07/11/21 21:31 Home Medications: Home Meds Aspirin [Adult Low Dose Aspirin EC] 81 mg PO DAILY 01/03/16 [History] Citalopram Hydrobromide [Celexa] 20 mg PO DAILY 01/03/16 [History] Clopidogrel [Plavix] 75 mg PO DAILY 01/03/16 [History] atorvaSTATin [Lipitor] 20 mg PO BEDTIME 01/03/16 [History] Albuterol Sulfate [Proair Hfa] 1 - 2 puff IH Q4H PRN 10/14/19 [History] Albuterol/Ipratropium [DuoNeb 3.0-0.5 MG/3 ML] 3 ml IH Q4H PRN 10/14/19 [History] Amoxicillin/Clavulanate K [Augmentin 875-125 MG] 1 tab PO BID 07/11/21 [History] Calcium Carb/Vit D3/Minerals [Calcium 600+D Plus Minerals] 1 tab PO BID 07/11/21 [History] Multivit with Calcium,Iron,Min [One Daily Women's] 1 tab PO DAILY 07/11/21 [History] traMADol [Ultram] 1 tab PO Q6H PRN 07/11/21 [History] Past Medical History HEENT History: Reports: Impaired Vision Cardiovascular History: Reports: High Cholesterol, PVD, Other (See Below) Other Cardiovascular History: Dyslipidemia, cardiac stenosis Respiratory History: Reports: Bronchitis, Recurrent, COPD, SOB, Other (See Below) Other Respiratory History: O2 at 2L Gastrointestinal History: Reports: Cholelithiasis 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: Musculoskeletal History: Reports: Osteoporosis, Other (See Below) Other Musculoskeletal History: Hip fracture, right jaw fracture Neurological History: Reports: CVA Oncologic (Cancer) History: Reports: Breast Dermatologic History: Reports: Other (See Below) Other Dermatologic History: Dry Skin - Infectious Disease History 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, Other, Shingles - Past Surgical History HEENT Surgical History: Reports: Cataract Surgery, Tonsillectomy Cardiovascular Surgical History: Reports: Carotid Endarterectomy GI Surgical History: Reports: Appendectomy, Cholecystectomy, Colonoscopy, Hernia, Abdominal Female Surgical History: Reports: Breast Biopsy, Mastectomy Musculoskeletal Surgical History: Reports: Hip Replacement Social & Family History - Family History Family Medical History: No Pertinent Family History Oncologic: Reports: Breast, Lung - Tobacco Use Tobacco Use Status *Q: Current Every Day Tobacco User Years of Tobacco use: 60 Packs/Tins Daily: 0.2 - Caffeine Use Caffeine Use: Reports: None - Recreational Drug Use Recreational Drug Use: No - Living Situation & Occupation Living situation: Reports: ( 5 years ago, lives alone with PHYSICIAN ASSISTANT CERTIFIED assistance 3 times a week. Has 3 adult children. Daughter Rani assist with care decisions.) H&P Review of Systems - Review of Systems: Review Of Systems: See Below General: Reports: Other (reports worsen shortness of breath) HEENT: Reports: Ear Pain (right ear infection- start Augmentin 4 days ago. with MRSA infection), Glasses (reading glasses) Pulmonary: Reports: Shortness of Breath, Wheezing, Pleuritic Chest Pain, Cough Cardiovascular: Reports: No Symptoms Gastrointestinal: Reports: No Symptoms Genitourinary: Reports: No Symptoms Musculoskeletal: Reports: No Symptoms Skin: Reports: No Symptoms Psychiatric: Reports: Confusion (Daughter reports confusion today, now clear with oxygen and neb treatments.) Neurological: Reports: Confusion Hematologic/Lymphatic: Reports: No Symptoms Immunologic: Reports: No Symptoms Exam - Exam Exam: See Below - Vital Signs Vital Signs: Last Vital Signs Temp 98.2 F 07/11/21 21:37 Pulse 72 07/11/21 23:19 Resp 18 07/11/21 23:19 BP 112/37 L 07/11/21 23:19 Pulse Ox 92 L 07/11/21 23:19 Weight: 101 lb - Exam Quality Assessment: Supplemental Oxygen, DVT Prophylaxis General: Alert, Cooperative, Mild Distress, Other (very thin, fragile adult female. speaking in raspy voice in short sentence. ) HEENT: EOMI, Pupils Equal, Pupils Reactive, Other (right ear canal with copious thin fluid in ER). No: Mucosa Moist & [place] (mouth is dry) Neck: Supple, Trachea Midline Lungs: Decreased Breath Sounds, Wheezing Cardiovascular: Regular Rate, Regular Rhythm, Normal S1, Normal S2 GI/Abdominal Exam: Normal Bowel Sounds, Soft, Non-Tender, No Organomegaly, No Distention (Female) Exam: Deferred Rectal (Female) Exam: Deferred Back Exam: Normal Inspection Extremities: Normal Inspection, Normal Range of Motion, Non-Tender, No Pedal Edema, Normal Capillary Refill Peripheral Pulses: 2+: Radial (L), Radial (R) Skin: Warm, Dry Neurological: Cranial Nerves Intact, Reflexes Equal Bilateral, Strength Equal Bilateral Neuro Extensive - Mental Status: Alert, Normal Mood/Affect, Normal Cognition Psychiatric: Alert, Normal Affect, Normal Mood - Patient Data Lab Results Last 24 hrs: Laboratory Results - last 24 hr 07/11/21 07/11/21 07/11/21 Range/Units 22:50 22:50 22:50 WBC 10.1 (4.5-11.0) K/uL RBC 3.86 (3.30-5.50) M/uL Hgb 12.0 D (12.0-15.0) g/dL Hct 38.5 (36.0-48.0) % MCV 100 H (80-98) fL MCH 31 (27-31) pg MCHC 31 L (32-36) % Plt Count 233 (150-400) K/uL Neut % (Auto) 73.7 H (36-66) % Lymph % (Auto) 18.6 L (24-44) % [place] % (Auto) 5.8 (2-6) % Eos % (Auto) 1.3 L (2-4) % Baso % (Auto) 0.6 (0-1) % ABG Hemoglobin (12.0-16.0) g/dL ABG Oxyhemoglobin % ABG Carboxyhemoglobin (0.0-1.6) % ABG Methemoglobin % VBG pH (7.350-7.450) VBG pCO2 mm/Hg VBG pO2 mm/Hg VBG HCO3 mmol/L VBG Total CO2 mmol/L VBG O2 Saturation VBG O2 Content %vol VBG Base Excess mm/L O2 Delivery Device Sodium 134 L (140-148) mmol/L Potassium 5.2 (3.6-5.2) mmol/L Chloride 97 L (100-108) mmol/L Carbon Dioxide 31 (21-32) mmol/L Anion Gap 11.2 (5.0-14.0) mmol/L BUN 28 H D (7-18) mg/dL Creatinine 1.0 (0.6-1.0) mg/dL Est Cr Clr Drug Dosing 34.38 mL/min Estimated GFR (MDRD) 54 L (>60) Glucose 85 (74-106) mg/dL Lactic Acid 1.2 (0.4-2.0) mmol/L Calcium 8.6 (8.5-10.1) mg/dL Magnesium 2.2 (1.8-2.4) mg/dL Total Bilirubin 0.3 (0.2-1.0) mg/dL AST 16 (15-37) U/L ALT 17 (12-78) U/L Alkaline Phosphatase 69 (46-116) U/L C-Reactive Protein (0.0-0.3) mg/dL Total Protein 7.5 (6.4-8.2) g/dL Albumin 2.9 L (3.4-5.0) g/dL Globulin 4.6 H (2.3-3.5) g/dL Albumin/Globulin Ratio 0.6 L (1.2-2.2) Amylase 45 (25-115) U/L Lipase 42 L (73-393) U/L 07/11/21 07/11/21 Range/Units 22:50 23:00 WBC (4.5-11.0) K/uL RBC (3.30-5.50) M/uL Hgb (12.0-15.0) g/dL Hct (36.0-48.0) % MCV (80-98) fL MCH (27-31) pg MCHC (32-36) % Plt Count (150-400) K/uL Neut % (Auto) (36-66) % Lymph % (Auto) (24-44) % [place] % (Auto) (2-6) % Eos % (Auto) (2-4) % Baso % (Auto) (0-1) % ABG Hemoglobin 11.9 L (12.0-16.0) g/dL ABG Oxyhemoglobin 54.7 % ABG Carboxyhemoglobin 1.2 (0.0-1.6) % ABG Methemoglobin 0.6 % VBG pH 7.383 (7.350-7.450) VBG pCO2 53.0 mm/Hg VBG pO2 31.9 mm/Hg VBG HCO3 30.9 mmol/L VBG Total CO2 28.4 mmol/L VBG O2 Saturation 55.7 VBG O2 Content 9.2 %vol VBG Base Excess 5.1 mm/L O2 Delivery Device Nasal cannula Sodium (140-148) mmol/L Potassium (3.6-5.2) mmol/L Chloride (100-108) mmol/L Carbon Dioxide (21-32) mmol/L Anion Gap (5.0-14.0) mmol/L BUN (7-18) mg/dL Creatinine (0.6-1.0) mg/dL Est Cr Clr Drug Dosing mL/min Estimated GFR (MDRD) (>60) Glucose (74-106) mg/dL Lactic Acid (0.4-2.0) mmol/L Calcium (8.5-10.1) mg/dL Magnesium (1.8-2.4) mg/dL Total Bilirubin (0.2-1.0) mg/dL AST (15-37) U/L ALT (12-78) U/L Alkaline Phosphatase (46-116) U/L C-Reactive Protein 2.17 H (0.0-0.3) mg/dL Total Protein (6.4-8.2) g/dL Albumin (3.4-5.0) g/dL Globulin (2.3-3.5) g/dL Albumin/Globulin Ratio (1.2-2.2) Amylase (25-115) U/L Lipase (73-393) U/L Result Diagrams: 07/11/21 22:50 07/11/21 22:50 Sepsis Event Note - Evaluation Sepsis Screening Result: No Definite Risk - Focused Exam Vital Signs: Vital Signs Temp Pulse Resp BP Pulse Ox 07/11/21 23:19 72 18 112/37 L 92 L 07/11/21 22:00 72 12 104/48 L 93 L 07/11/21 21:37 98.2 F 71 18 108/51 L 90 L 07/11/21 21:31 98.2 F 71 18 108/51 L 90 L - Problem List (1) COPD exacerbation SNOMED Code(s): 432472091 ICD Code: J44.1 - CHRONIC OBSTRUCTIVE PULMONARY DISEASE W (ACUTE) EXACERBATION Status: Acute Priority: High Current Visit: Yes (2) Infection of right inner ear SNOMED Code(s): 176420264 ICD Code: H83.01 - LABYRINTHITIS, RIGHT EAR Status: Acute Priority: High Current Visit: Yes (3) Tobacco dependence SNOMED Code(s): 15264300 ICD Code: F17.200 - NICOTINE DEPENDENCE, UNSPECIFIED, UNCOMPLICATED Status: Acute Priority: High Current Visit: Yes Problem List Initiated/Reviewed/Updated: Yes Orders Last 24hrs: Active Orders 24 hr Category Date Time Status Patient Status Manage Transfer [TRANSFER] Routine ADT 07/12/21 00:33 Ordered Cardiac Monitoring Discontinue [RC] Click to Edit Care 07/11/21 21:58 Active RT Aerosol Therapy [RC] ASDIRECTED Care 07/11/21 21:59 Active Vital Signs [RC] Q1H Care 07/11/21 22:40 Active Chest 1V Frontal [CR] Urgent Exams 07/11/21 21:58 Taken CULTURE BLOOD [BC] Urgent Lab 07/11/21 22:35 Received CULTURE BLOOD [BC] Urgent Lab 07/11/21 23:00 Received UA W/MICROSCOPIC [URIN] Urgent Lab 07/11/21 21:58 Ordered Doxycycline [Vibramycin] 100 mg Med 07/11/21 22:45 Active Sodium Chloride 0.9% [Normal Saline] 100 ml IV Q12H Sodium Chloride 0.9% [Normal Saline] 1,000 ml Med 07/11/21 22:15 Active IV ASDIRECTED cefTRIAXone [Rocephin] 1 gm Med 07/11/21 23:00 Active Sodium Chloride 0.9% [Normal Saline] 50 ml IV Q24H Blood Culture x2 Reflex Set [OM.PC] Urgent Oth 07/11/21 21:57 Ordered Resuscitation Status Routine Resus Stat 07/12/21 00:36 Ordered Medication Orders Sodium Chloride (Normal Saline) 1,000 mls @ 125 mls/hr IV ASDIRECTED [facility] Last Admin: 07/11/21 23:10 Dose: 125 mls/hr Documented by: ASUNCION Ceftriaxone Sodium 1 gm/ (Sodium Chloride) 50 mls @ 100 mls/hr IV Q24H [facility] Last Admin: 07/12/21 00:13 Dose: 100 mls/hr Documented by: ASUNCION Doxycycline Hyclate 100 mg/ (Sodium Chloride) 100 mls @ 100 mls/hr IV Q12H [facility] Last Admin: 07/11/21 23:17 Dose: 100 mls/hr Documented by: ASUNCION Assessment/Plan Comment:: Assessment/Plan Comment:: ASSESSMENT AND PLAN OF CARE- COPD WITH EXACERBATION, RIGHT EAR INFECTION WITH MRSA, TOBACCO chief complaint: shortness of breath This is a 75 year old female presents to the ER with Daughter Rani, who gives report of today illness. Mrs. Guzman lives alone and has a PHYSICIAN ASSISTANT CERTIFIED for 4 hours 3 times a week. Today when check on her Mom after work- she was confused, lethargic, oxygen saturation were 77 % on 2liter nasal canula. She was given nebulizer treatments without improved. Her Daughter brought her to the ER for evaluation. Onset of symptoms- Friday night- 5 days ago had shortness of breath, smokes 4 cigarettes per day, has daily home oxygen at 2 liter [place] last meal at 3:30 pm ate a piece of toast last BM - this afternoon Last Doctor visit- seen 4 days ago- for ear infection- given Augment 875 mg po bid history of MRSA infection of ear canal ER workup shows elevated WBC 10.1, hgb 12.0, hct 38.5, PLT 233, Chemistry Na+ 134, K+ 5.2, Cl 97, anion gap 11.2, BUN 28, Cr 1.0, glucose 85, Co2 31, Amylase 45, lipase 42. Xray chest- no lobe infiltrates- Plan to hospital admission for further care and treatment. Patient agree with plan of care. COPD with exacerbation -Admit to [address] [place] [address] for further monitoring -IV Fluids for rehydration NS at 125 ml/hr -IV Antibiotic; Rocephin 1 gram IV every 24 hours -IV Doxy 100mg every 12 hours -oxygen to keep sats greater than 95% -IV Solumedrol 62.5 mg every 8 hours -schedule Duo nebs every 6 hours, Albuterol nebs every 4 hours prn -Advise to notify nurses of any chest pain or other symptoms -blood cultures x2 pending -And a.m. labs: CBC, BMP Right ear infection with MRSA -IV antibiotic will cover this -hold Augmentin -precautions Tobacco dependence- smokes 4 cigarettes per day -Nicotine patch 7 mg daily -encouraged to quit smoking Maintenance issues -Orders home meds: chronic medication -Nutrition: regular diet - lactose intolerant -Mars catheter -not indicated at this time -DVT - SCD -PPI; IV Protonix 40mg daily CODE STATUS: DNR/DNI Admission status: Admit to [address] [place] [address] Admission justification. This patient will be admitted for inpatient services and is medically appropriate meeting medical necessity for inpatient admission as outlined in my documentation. I reasonably expect the patient will require inpatient services that span. Time over 2 midnights. I reasonably expect this patient to be discharged or transferred within 96 hours after admission to the critical access hospital. Disposition: home with Family Primary care provider: Hospitalist: Dr. Pettit - Mortality Measure Prognosis:: Good
[2021-07-12] MEDS ORDERED: Ondansetron 4 MG Tab.DIS PO PRN (01:47)
[2021-07-12] MEDS ORDERED: Albuterol 0.083% 2.5 MG/3 ML Neb Soln NEB PRN ×3 (01:47→09:25)
[2021-07-12] MEDS ORDERED: Docusate Sodium 100 MG Cap PO PRN (01:47)
[2021-07-12] MEDS ORDERED: Bisacodyl 5 MG Tab PO PRN (01:47)
[2021-07-12] MEDS ORDERED: Ondansetron 4 MG/2 ML SDV IV PRN (01:47)
[2021-07-12] MEDS ORDERED: traMADol 50 MG Tab PO PRN (01:47)
[2021-07-12] MEDS: methylPREDNISolone Sodium Succinate 125 MG/2 ML SDV IV SCH ×2 (02:14→08:04)
[2021-07-12] MEDS: Morphine 2 MG/ML SYRINGE IVPUSH PRN ×2 (03:06→08:05)
[2021-07-12] MEDS ORDERED: Sodium Chloride 0.9% 1,000 ML IV SCH (05:00)
[2021-07-12] MEDS ORDERED: Albuterol/Ipratropium 3.0-0.5 MG/3 ML Neb Soln NEB SCH (06:00)
[2021-07-12] MEDS ORDERED: Albuterol/Ipratropium 3.0-0.5 MG/3 ML Neb Soln NEB PRN (07:32)
[2021-07-12] MEDS: Citalopram 20 MG Tab PO SCH (08:04)
[2021-07-12] MEDS: Aspirin 81 MG Tab.EC PO SCH (08:04)
[2021-07-12] MEDS: Clopidogrel 75 MG Tab PO SCH (08:04)
[2021-07-12] MEDS: Pantoprazole 40 MG Tab.CR PO SCH (08:06)
[2021-07-12] MEDS ORDERED: Pantoprazole 40 MG Vial IV SCH (09:00)
--- NOTE | 2021-07-12 09:08 | CR ---
CHEST: Portable 07/11/2021 at 11:33 PM CLINICAL HISTORY:SOB, COPD COMPARISON:2018 FINDINGS: Lungs are emphysematous. There is patchy density in the left lower lobe suspect for pneumonia. Heart size and pulmonary vascularity are normal. There is a minimal left effusion Impression: COPD Left lower lobe pneumonia. Minimal left pleural effusion
--- NOTE | 2021-07-12 09:26 | PCM.PN ---
- General Info Date of Service: 07/12/21 Subjective Update: No acute events overnight following admission. She is currently requiring about 3-1/2 to 4 L of supplemental oxygen. She feels that her breathing is improved c ompared to yesterday and she is breathing more comfortably. She does have a cough but does not produce sputum. No complaints of chest pain or nausea. Appetite is good. Energy is improving. She does desaturate quickly without her oxygen. Functional Status: Reports: Pain Controlled, Tolerating Diet - Review of Systems General: Reports: Weakness. Denies: Fever Pulmonary: Reports: Shortness of Breath, Cough - Patient Data Vitals - Most Recent: Last Vital Signs Temp 35.8 C L 07/12/21 07:00 Pulse 78 07/12/21 07:00 Resp 22 H 07/12/21 07:00 BP 98/41 L 07/12/21 07:00 Pulse Ox 92 L 07/12/21 07:48 Weight - Most Recent: 47.2 kg I&O - Last 24 Hours: Intake & Output 07/11/21 07/12/21 07/12/21 22:59 06:59 14:59 Intake Total 780 Output Total 0 Balance 780 Lab Results Last 24 Hours: Laboratory Results - last 24 hr 07/11/21 07/11/21 07/11/21 Range/Units 22:50 22:50 22:50 WBC 10.1 (4.5-11.0) K/uL RBC 3.86 (3.30-5.50) M/uL Hgb 12.0 D (12.0-15.0) g/dL Hct 38.5 (36.0-48.0) % MCV 100 H (80-98) fL MCH 31 (27-31) pg MCHC 31 L (32-36) % Plt Count 233 (150-400) K/uL Neut % (Auto) 73.7 H (36-66) % Lymph % (Auto) 18.6 L (24-44) % [place] % (Auto) 5.8 (2-6) % Eos % (Auto) 1.3 L (2-4) % Baso % (Auto) 0.6 (0-1) % Puncture Site ABG pH (7.350-7.450) ABG pCO2 (35.0-42.0) mmHg ABG pO2 (75.0-100.0) mmHg ABG HCO3 (22.0-26.0) mmol/L ABG Total CO2 (21.0-25.0) mmol/L ABG O2 Saturation (95.0-98.0) % ABG O2 Content (15.0-23.0) %vol ABG Base Excess mm/L ABG Hemoglobin (12.0-16.0) g/dL ABG Oxyhemoglobin % ABG Carboxyhemoglobin (0.0-1.6) % ABG Methemoglobin % Ian Test VBG pH (7.350-7.450) VBG pCO2 mm/Hg VBG pO2 mm/Hg VBG HCO3 mmol/L VBG Total CO2 mmol/L VBG O2 Saturation VBG O2 Content %vol VBG Base Excess mm/L O2 Delivery Device Oxygen Flow Rate L Sodium 134 L (140-148) mmol/L Potassium 5.2 (3.6-5.2) mmol/L Chloride 97 L (100-108) mmol/L Carbon Dioxide 31 (21-32) mmol/L Anion Gap 11.2 (5.0-14.0) mmol/L BUN 28 H D (7-18) mg/dL Creatinine 1.0 (0.6-1.0) mg/dL Est Cr Clr Drug Dosing 34.38 mL/min Estimated GFR (MDRD) 54 L (>60) Glucose 85 (74-106) mg/dL Lactic Acid 1.2 (0.4-2.0) mmol/L Calcium 8.6 (8.5-10.1) mg/dL Magnesium 2.2 (1.8-2.4) mg/dL Total Bilirubin 0.3 (0.2-1.0) mg/dL AST 16 (15-37) U/L ALT 17 (12-78) U/L Alkaline Phosphatase 69 (46-116) U/L C-Reactive Protein (0.0-0.3) mg/dL Total Protein 7.5 (6.4-8.2) g/dL Albumin 2.9 L (3.4-5.0) g/dL Globulin 4.6 H (2.3-3.5) g/dL Albumin/Globulin Ratio 0.6 L (1.2-2.2) Amylase 45 (25-115) U/L Lipase 42 L (73-393) U/L 07/11/21 07/11/21 07/12/21 Range/Units 22:50 23:00 05:18 WBC 11.3 H (4.5-11.0) K/uL RBC 3.42 (3.30-5.50) M/uL Hgb 10.7 L (12.0-15.0) g/dL Hct 34.0 L (36.0-48.0) % MCV 99 H (80-98) fL MCH 31 (27-31) pg MCHC 32 (32-36) % Plt Count 218 (150-400) K/uL Neut % (Auto) 93.8 H (36-66) % Lymph % (Auto) 4.9 L (24-44) % [place] % (Auto) 0.9 L (2-6) % Eos % (Auto) 0.1 L (2-4) % Baso % (Auto) 0.3 (0-1) % Puncture Site ABG pH (7.350-7.450) ABG pCO2 (35.0-42.0) mmHg ABG pO2 (75.0-100.0) mmHg ABG HCO3 (22.0-26.0) mmol/L ABG Total CO2 (21.0-25.0) mmol/L ABG O2 Saturation (95.0-98.0) % ABG O2 Content (15.0-23.0) %vol ABG Base Excess mm/L ABG Hemoglobin 11.9 L (12.0-16.0) g/dL ABG Oxyhemoglobin 54.7 % ABG Carboxyhemoglobin 1.2 (0.0-1.6) % ABG Methemoglobin 0.6 % Ian Test VBG pH 7.383 (7.350-7.450) VBG pCO2 53.0 mm/Hg VBG pO2 31.9 mm/Hg VBG HCO3 30.9 mmol/L VBG Total CO2 28.4 mmol/L VBG O2 Saturation 55.7 VBG O2 Content 9.2 %vol VBG Base Excess 5.1 mm/L O2 Delivery Device Nasal cannula Oxygen Flow Rate L Sodium (140-148) mmol/L Potassium (3.6-5.2) mmol/L Chloride (100-108) mmol/L Carbon Dioxide (21-32) mmol/L Anion Gap (5.0-14.0) mmol/L BUN (7-18) mg/dL Creatinine (0.6-1.0) mg/dL Est Cr Clr Drug Dosing mL/min Estimated GFR (MDRD) (>60) Glucose (74-106) mg/dL Lactic Acid (0.4-2.0) mmol/L Calcium (8.5-10.1) mg/dL Magnesium (1.8-2.4) mg/dL Total Bilirubin (0.2-1.0) mg/dL AST (15-37) U/L ALT (12-78) U/L Alkaline Phosphatase (46-116) U/L C-Reactive Protein 2.17 H (0.0-0.3) mg/dL Total Protein (6.4-8.2) g/dL Albumin (3.4-5.0) g/dL Globulin (2.3-3.5) g/dL Albumin/Globulin Ratio (1.2-2.2) Amylase (25-115) U/L Lipase (73-393) U/L 07/12/21 07/12/21 Range/Units 05:18 07:10 WBC (4.5-11.0) K/uL RBC (3.30-5.50) M/uL Hgb (12.0-15.0) g/dL Hct (36.0-48.0) % MCV (80-98) fL MCH (27-31) pg MCHC (32-36) % Plt Count (150-400) K/uL Neut % (Auto) (36-66) % Lymph % (Auto) (24-44) % [place] % (Auto) (2-6) % Eos % (Auto) (2-4) % Baso % (Auto) (0-1) % Puncture Site Right radial ABG pH 7.376 (7.350-7.450) ABG pCO2 47.9 H (35.0-42.0) mmHg ABG pO2 55.7 L (75.0-100.0) mmHg ABG HCO3 27.4 H (22.0-26.0) mmol/L ABG Total CO2 25.3 H (21.0-25.0) mmol/L ABG O2 Saturation 87.3 L (95.0-98.0) % ABG O2 Content 13.1 L (15.0-23.0) %vol ABG Base Excess 2.2 mm/L ABG Hemoglobin 10.9 L (12.0-16.0) g/dL ABG Oxyhemoglobin 85.2 % ABG Carboxyhemoglobin 1.5 (0.0-1.6) % ABG Methemoglobin 0.9 % Ian Test Passed VBG pH (7.350-7.450) VBG pCO2 mm/Hg VBG pO2 mm/Hg VBG HCO3 mmol/L VBG Total CO2 mmol/L VBG O2 Saturation VBG O2 Content %vol VBG Base Excess mm/L O2 Delivery Device Nasal cannula Oxygen Flow Rate 4.0 L Sodium 134 L (140-148) mmol/L Potassium 4.6 (3.6-5.2) mmol/L Chloride 98 L (100-108) mmol/L Carbon Dioxide 28 (21-32) mmol/L Anion Gap 12.6 (5.0-14.0) mmol/L BUN 27 H (7-18) mg/dL Creatinine 1.0 (0.6-1.0) mg/dL Est Cr Clr Drug Dosing 34.38 mL/min Estimated GFR (MDRD) 54 L (>60) Glucose 102 (74-106) mg/dL Lactic Acid (0.4-2.0) mmol/L Calcium 8.1 L (8.5-10.1) mg/dL Magnesium (1.8-2.4) mg/dL Total Bilirubin (0.2-1.0) mg/dL AST (15-37) U/L ALT (12-78) U/L Alkaline Phosphatase (46-116) U/L C-Reactive Protein (0.0-0.3) mg/dL Total Protein (6.4-8.2) g/dL Albumin (3.4-5.0) g/dL Globulin (2.3-3.5) g/dL Albumin/Globulin Ratio (1.2-2.2) Amylase (25-115) U/L Lipase (73-393) U/L Med Orders - Current: Current Medications Albuterol (Albuterol 0.083% 2.5 Mg/3 Ml Neb Soln) 2.5 mg NEB Q1H PRN PRN Reason: Shortness of Breath Last Admin: 07/12/21 05:00 Dose: 2.5 mg Documented by: Albuterol/Ipratropium (Albuterol/Ipratropium 3.0-0.5 Mg/3 Ml Neb Soln) 3 ml NEB QIDRT PENDING SALE TO [facility] Albuterol/Ipratropium (Albuterol/Ipratropium 3.0-0.5 Mg/3 Ml Neb Soln) 3 ml NEB Q4H PRN PRN Reason: BREATHING DIFFICULTY Aspirin (Aspirin 81 Mg Tab.Ec) 81 mg PO DAILY PENDING SALE TO [facility] Last Admin: 07/12/21 08:04 Dose: 81 mg Documented by: Bisacodyl (Bisacodyl 5 Mg Tab) 5 mg PO DAILY PRN PRN Reason: Constipation Citalopram Hydrobromide (Citalopram 20 Mg Tab) 20 mg PO DAILY PENDING SALE TO [facility] Last Admin: 07/12/21 08:04 Dose: 20 mg Documented by: Clopidogrel Bisulfate (Clopidogrel 75 Mg Tab) 75 mg PO DAILY PENDING SALE TO [facility] Last Admin: 07/12/21 08:04 Dose: 75 mg Documented by: Docusate Sodium (Docusate Sodium 100 Mg Cap) 100 mg PO BID PRN PRN Reason: Constipation Ceftriaxone Sodium 1 gm/ (Sodium Chloride) 50 mls @ 100 mls/hr IV Q24H PENDING SALE TO [facility] Last Admin: 07/12/21 00:13 Dose: 100 mls/hr Documented by: Sodium Chloride (Normal Saline) 1,000 mls @ 75 mls/hr IV ASDIRECTED PENDING SALE TO [facility] Doxycycline Hyclate 100 mg/ (Sodium Chloride) 100 mls @ 100 mls/hr IV Q12H PENDING SALE TO [facility] Methylprednisolone Sodium Succinate (Methylprednisolone Sodium Succinate 125 Mg/2 Ml Sdv) 62.5 mg IV Q6H PENDING SALE TO [facility] Last Admin: 07/12/21 08:04 Dose: 62.5 mg Documented by: Morphine Sulfate (Morphine 2 Mg/Ml Syringe) 2 mg IVPUSH Q2H PRN PRN Reason: Pain (severe 7-10) Last Admin: 07/12/21 08:05 Dose: 2 mg Documented by: Ondansetron HCl (Ondansetron 4 Mg Tab.Dis) 4 mg PO Q6H PRN PRN Reason: Nausea able to take PO Ondansetron HCl (Ondansetron 4 Mg/2 Ml Sdv) 4 mg IV Q4H PRN PRN Reason: Nausea/Vomiting Pantoprazole Sodium (Pantoprazole 40 Mg Tab.Cr) 40 mg PO ACBREAKFAST PENDING SALE TO [facility] Last Admin: 07/12/21 08:06 Dose: 40 mg Documented by: Tramadol HCl (Tramadol 50 Mg Tab) 50 mg PO Q6H PRN PRN Reason: Pain Discontinued Medications Albuterol (Albuterol 0.083% 2.5 Mg/3 Ml Neb Soln) 2.5 mg NEB ONETIME ONE Stop: 07/11/21 21:58 Last Admin: 07/11/21 22:21 Dose: 2.5 mg Documented by: Albuterol (Albuterol 0.083% 2.5 Mg/3 Ml Neb Soln) 2.5 mg NEB Q4H PRN PRN Reason: Shortness Of Breath;wheezing Last Admin: 07/12/21 02:01 Dose: 2.5 mg Documented by: Albuterol/Ipratropium (Albuterol/Ipratropium 3.0-0.5 Mg/3 Ml Neb Soln) 3 ml NEB QID PENDING SALE TO [facility] Last Admin: 07/12/21 06:45 Dose: 3 ml Documented by: Sodium Chloride (Normal Saline) 1,000 mls @ 125 mls/hr IV ASDIRECTED PENDING SALE TO [facility] Last Admin: 07/11/21 23:10 Dose: 125 mls/hr Documented by: Doxycycline Hyclate 100 mg/ (Sodium Chloride) 100 mls @ 100 mls/hr IV Q12H PENDING SALE TO [facility] Last Admin: 07/11/21 23:17 Dose: 100 mls/hr Documented by: - Exam Quality Assessment: Supplemental Oxygen General: Alert, Oriented, Cooperative, No Acute Distress Lungs: Crackles (mild lower lungs), Wheezing (mild diffuse exp ). No: Normal Respiratory Effort (mild increased work of breathing ) Cardiovascular: Regular Rate, Regular Rhythm GI/Abdominal Exam: Soft, No Distention Extremities: No Pedal Edema. No: Increased Warmth Skin: Warm, Dry Psy/Mental Status: Alert, Normal Affect - Patient Data Lab Results Last 24 hrs: Laboratory Results - last 24 hr 07/11/21 07/11/21 07/11/21 Range/Units 22:50 22:50 22:50 WBC 10.1 (4.5-11.0) K/uL RBC 3.86 (3.30-5.50) M/uL Hgb 12.0 D (12.0-15.0) g/dL Hct 38.5 (36.0-48.0) % MCV 100 H (80-98) fL MCH 31 (27-31) pg MCHC 31 L (32-36) % Plt Count 233 (150-400) K/uL Neut % (Auto) 73.7 H (36-66) % Lymph % (Auto) 18.6 L (24-44) % [place] % (Auto) 5.8 (2-6) % Eos % (Auto) 1.3 L (2-4) % Baso % (Auto) 0.6 (0-1) % Puncture Site ABG pH (7.350-7.450) ABG pCO2 (35.0-42.0) mmHg ABG pO2 (75.0-100.0) mmHg ABG HCO3 (22.0-26.0) mmol/L ABG Total CO2 (21.0-25.0) mmol/L ABG O2 Saturation (95.0-98.0) % ABG O2 Content (15.0-23.0) %vol ABG Base Excess mm/L ABG Hemoglobin (12.0-16.0) g/dL ABG Oxyhemoglobin % ABG Carboxyhemoglobin (0.0-1.6) % ABG Methemoglobin % Ian Test VBG pH (7.350-7.450) VBG pCO2 mm/Hg VBG pO2 mm/Hg VBG HCO3 mmol/L VBG Total CO2 mmol/L VBG O2 Saturation VBG O2 Content %vol VBG Base Excess mm/L O2 Delivery Device Oxygen Flow Rate L Sodium 134 L (140-148) mmol/L Potassium 5.2 (3.6-5.2) mmol/L Chloride 97 L (100-108) mmol/L Carbon Dioxide 31 (21-32) mmol/L Anion Gap 11.2 (5.0-14.0) mmol/L BUN 28 H D (7-18) mg/dL Creatinine 1.0 (0.6-1.0) mg/dL Est Cr Clr Drug Dosing 34.38 mL/min Estimated GFR (MDRD) 54 L (>60) Glucose 85 (74-106) mg/dL Lactic Acid 1.2 (0.4-2.0) mmol/L Calcium 8.6 (8.5-10.1) mg/dL Magnesium 2.2 (1.8-2.4) mg/dL Total Bilirubin 0.3 (0.2-1.0) mg/dL AST 16 (15-37) U/L ALT 17 (12-78) U/L Alkaline Phosphatase 69 (46-116) U/L C-Reactive Protein (0.0-0.3) mg/dL Total Protein 7.5 (6.4-8.2) g/dL Albumin 2.9 L (3.4-5.0) g/dL Globulin 4.6 H (2.3-3.5) g/dL Albumin/Globulin Ratio 0.6 L (1.2-2.2) Amylase 45 (25-115) U/L Lipase 42 L (73-393) U/L 07/11/21 07/11/21 07/12/21 Range/Units 22:50 23:00 05:18 WBC 11.3 H (4.5-11.0) K/uL RBC 3.42 (3.30-5.50) M/uL Hgb 10.7 L (12.0-15.0) g/dL Hct 34.0 L (36.0-48.0) % MCV 99 H (80-98) fL MCH 31 (27-31) pg MCHC 32 (32-36) % Plt Count 218 (150-400) K/uL Neut % (Auto) 93.8 H (36-66) % Lymph % (Auto) 4.9 L (24-44) % [place] % (Auto) 0.9 L (2-6) % Eos % (Auto) 0.1 L (2-4) % Baso % (Auto) 0.3 (0-1) % Puncture Site ABG pH (7.350-7.450) ABG pCO2 (35.0-42.0) mmHg ABG pO2 (75.0-100.0) mmHg ABG HCO3 (22.0-26.0) mmol/L ABG Total CO2 (21.0-25.0) mmol/L ABG O2 Saturation (95.0-98.0) % ABG O2 Content (15.0-23.0) %vol ABG Base Excess mm/L ABG Hemoglobin 11.9 L (12.0-16.0) g/dL ABG Oxyhemoglobin 54.7 % ABG Carboxyhemoglobin 1.2 (0.0-1.6) % ABG Methemoglobin 0.6 % Ian Test VBG pH 7.383 (7.350-7.450) VBG pCO2 53.0 mm/Hg VBG pO2 31.9 mm/Hg VBG HCO3 30.9 mmol/L VBG Total CO2 28.4 mmol/L VBG O2 Saturation 55.7 VBG O2 Content 9.2 %vol VBG Base Excess 5.1 mm/L O2 Delivery Device Nasal cannula Oxygen Flow Rate L Sodium (140-148) mmol/L Potassium (3.6-5.2) mmol/L Chloride (100-108) mmol/L Carbon Dioxide (21-32) mmol/L Anion Gap (5.0-14.0) mmol/L BUN (7-18) mg/dL Creatinine (0.6-1.0) mg/dL Est Cr Clr Drug Dosing mL/min Estimated GFR (MDRD) (>60) Glucose (74-106) mg/dL Lactic Acid (0.4-2.0) mmol/L Calcium (8.5-10.1) mg/dL Magnesium (1.8-2.4) mg/dL Total Bilirubin (0.2-1.0) mg/dL AST (15-37) U/L ALT (12-78) U/L Alkaline Phosphatase (46-116) U/L C-Reactive Protein 2.17 H (0.0-0.3) mg/dL Total Protein (6.4-8.2) g/dL Albumin (3.4-5.0) g/dL Globulin (2.3-3.5) g/dL Albumin/Globulin Ratio (1.2-2.2) Amylase (25-115) U/L Lipase (73-393) U/L 07/12/21 07/12/21 Range/Units 05:18 07:10 WBC (4.5-11.0) K/uL RBC (3.30-5.50) M/uL Hgb (12.0-15.0) g/dL Hct (36.0-48.0) % MCV (80-98) fL MCH (27-31) pg MCHC (32-36) % Plt Count (150-400) K/uL Neut % (Auto) (36-66) % Lymph % (Auto) (24-44) % [place] % (Auto) (2-6) % Eos % (Auto) (2-4) % Baso % (Auto) (0-1) % Puncture Site Right radial ABG pH 7.376 (7.350-7.450) ABG pCO2 47.9 H (35.0-42.0) mmHg ABG pO2 55.7 L (75.0-100.0) mmHg ABG HCO3 27.4 H (22.0-26.0) mmol/L ABG Total CO2 25.3 H (21.0-25.0) mmol/L ABG O2 Saturation 87.3 L (95.0-98.0) % ABG O2 Content 13.1 L (15.0-23.0) %vol ABG Base Excess 2.2 mm/L ABG Hemoglobin 10.9 L (12.0-16.0) g/dL ABG Oxyhemoglobin 85.2 % ABG Carboxyhemoglobin 1.5 (0.0-1.6) % ABG Methemoglobin 0.9 % Ian Test Passed VBG pH (7.350-7.450) VBG pCO2 mm/Hg VBG pO2 mm/Hg VBG HCO3 mmol/L VBG Total CO2 mmol/L VBG O2 Saturation VBG O2 Content %vol VBG Base Excess mm/L O2 Delivery Device Nasal cannula Oxygen Flow Rate 4.0 L Sodium 134 L (140-148) mmol/L Potassium 4.6 (3.6-5.2) mmol/L Chloride 98 L (100-108) mmol/L Carbon Dioxide 28 (21-32) mmol/L Anion Gap 12.6 (5.0-14.0) mmol/L BUN 27 H (7-18) mg/dL Creatinine 1.0 (0.6-1.0) mg/dL Est Cr Clr Drug Dosing 34.38 mL/min Estimated GFR (MDRD) 54 L (>60) Glucose 102 (74-106) mg/dL Lactic Acid (0.4-2.0) mmol/L Calcium 8.1 L (8.5-10.1) mg/dL Magnesium (1.8-2.4) mg/dL Total Bilirubin (0.2-1.0) mg/dL AST (15-37) U/L ALT (12-78) U/L Alkaline Phosphatase (46-116) U/L C-Reactive Protein (0.0-0.3) mg/dL Total Protein (6.4-8.2) g/dL Albumin (3.4-5.0) g/dL Globulin (2.3-3.5) g/dL Albumin/Globulin Ratio (1.2-2.2) Amylase (25-115) U/L Lipase (73-393) U/L Result Diagrams: 07/12/21 05:18 07/12/21 05:18 Sepsis Event Note - Evaluation Sepsis Screening Result: No Definite Risk - Focused Exam Vital Signs: Vital Signs Temp Temp Pulse Resp BP Pulse Ox 07/12/21 07:48 92 L 07/12/21 07:00 35.8 C L 78 22 H 98/41 L 89 L 07/12/21 02:31 94 L 07/12/21 02:12 86 L 07/12/21 01:57 35.8 C L 72 20 95/48 L 86 L 07/12/21 00:00 70 14 97/48 L 92 L 07/11/21 23:19 72 18 112/37 L 92 L 07/11/21 22:00 72 12 104/48 L 93 L 07/11/21 21:37 36.8 C 71 18 108/51 L 90 L 07/11/21 21:31 36.8 C 71 18 108/51 L 90 L - Problem List Review Problem List Initiated/Reviewed/Updated: Yes - My Orders Last 24 Hours: My Active Orders 07/12/21 09:24 Convert IV to Saline Lock [OM.PC] Routine 07/12/21 09:25 Discontinue Telemetry Monitoring [Cardiac Monitoring Discontinue] [RC] Click to Edit 07/12/21 09:25 Albuterol [Proventil Neb Soln] 2.5 mg NEB Q2H PRN 07/12/21 10:00 Doxycycline [Vibramycin] 100 mg PO Q12H 07/12/21 17:00 predniSONE 20 mg PO ONETIME ONE 07/13/21 05:00 BASIC METABOLIC PANEL,BMP [CHEM] Timed CBC W/O DIFF,HEMOGRAM [HEME] Timed (1) 07/13/21 08:00 predniSONE 40 mg PO WITHBREAKFAST - Plan Plan:: ASSESSMENT AND PLAN - COPD with exacerbation secondary to bronchitis-improving with antibiotics and steroids. Still has poor air movement but less wheezing. Still requiring increased oxygen from baseline. -Saline lock IV -Ceftriaxone and doxycycline -Supplemental oxygen, goal oxygen saturation 88-93 -IV Solumedrol 62.5 mg every 8 hours this morning, transition to prednisone this afternoon -Scheduled and as needed nebulizers -Acapella Right ear infection with MRSA-should be covered by doxycycline -precautions Tobacco dependence- smokes 1/2 to 1 pack/day. -Nicotine patch -encourage cessation Maintenance issues -Nutrition: regular diet - lactose intolerant -Mars catheter -not indicated at this time -DVT - SCD -GI; PPI Disposition: home with Family and possibly home care Lasha Pettit MD
[2021-07-12] MEDS: Doxycycline 100 MG Cap PO SCH ×2 (10:34→21:02)
[2021-07-12] MEDS: Albuterol/Ipratropium 3.0-0.5 MG/3 ML Neb Soln NEB SCH ×3 (10:37→21:02)
[2021-07-12] MEDS ORDERED: Doxycycline 100 MG in Sodium Chloride 0.9% 100 ML IV SCH (11:00)
[2021-07-12] MEDS ORDERED: Nicotine 21 MG/24 Hr Patch TRDERM PRN (14:08)
[2021-07-12] MEDS ORDERED: predniSONE 20 MG Tab PO ONE (17:00)
[2021-07-13] MEDS: Albuterol/Ipratropium 3.0-0.5 MG/3 ML Neb Soln NEB SCH ×3 (07:26→14:37)
[2021-07-13] MEDS ORDERED: predniSONE 20 MG Tab PO SCH (08:00)
[2021-07-13] MEDS: Citalopram 20 MG Tab PO SCH (08:22)
[2021-07-13] MEDS: Clopidogrel 75 MG Tab PO SCH (08:23)
[2021-07-13] MEDS: Aspirin 81 MG Tab.EC PO SCH (08:25)
[2021-07-13] MEDS: Pantoprazole 40 MG Tab.CR PO SCH (08:25)
--- NOTE | 2021-07-13 09:46 | PCM.DCSUM1 ---
Discharge Summary - Hospital Course Brief History: 75-year-old female with history of oxygen dependent COPD and tobacco dependence who presented with hypoxia and lethargy. She was admitted for management of an exacerbation of her COPD and suspected bronchitis with acute on chronic respiratory failure. Diagnosis: Stroke: No - Discharge Data Discharge Date: 07/13/21 Discharge Disposition: Home, W Home Health Agency 06 Condition: Fair - Referral to Home Health Date of Face to Face Encounter: 07/13/21 Reason for Homebound Status: dyspnea on exertion with O2 dependent COPD Primary Care Physician: PCP None Skilled Need: Nurse and PT - Discharge Diagnosis/Problem(s) (1) Acute bronchitis SNOMED Code(s): 56811251 ICD Code: J20.9 - ACUTE BRONCHITIS, UNSPECIFIED Status: Acute Current Visit: Yes Qualifiers: Bronchitis organism: unspecified organism Qualified Code(s): J20.9 - Acute bronchitis, unspecified (2) Acute and chronic respiratory failure with hypoxia SNOMED Code(s): 43865205, 721355827 ICD Code: J96.21 - ACUTE AND CHRONIC RESPIRATORY FAILURE WITH HYPOXIA Status: Acute Current Visit: Yes (3) COPD exacerbation SNOMED Code(s): 422887306 ICD Code: J44.1 - CHRONIC OBSTRUCTIVE PULMONARY DISEASE W (ACUTE) EXACERBATION Status: Acute Priority: High Current Visit: Yes (4) Tobacco dependence SNOMED Code(s): 06093943 ICD Code: F17.200 - NICOTINE DEPENDENCE, UNSPECIFIED, UNCOMPLICATED Status: Chronic Priority: High Current Visit: Yes - Patient Summary/Data Consults: Consultations 07/12/21 01:47 Consult to Spiritual Care [CONS] Routine Hospital Course: Le presented to the emergency room with hypoxia and lethargy from home. Work-up in the emergency room was suggestive of of an acute exacerbation of COPD with significant wheezing and acute on chronic hypoxia. Acute bronchitis was suspected as the cause. She received nebulizers, steroids and antibiotics and was admitted for further management given her higher oxygen requirements. Over the next couple of days we saw steady improvement in her respiratory status. Her wheezing improved and then resolved by the morning of discharge. She is now back to her usual supplemental oxygen requirement. At her peak she was requiri ng 4 L to keep her oxygen saturations borderline but now she is doing quite well on 2 L. She feels well. Appetite has been good. She has been up and around in her room. She feels well enough to go home. Cultures have been negative so far. The plan is for her to go home with 3 more days of steroids and 4 days of antibiotics. She has early follow-up planned with her primary care. - Patient Instructions Diet: Regular Diet as Tolerated Activity: As Tolerated Showering/Bathing: May Shower Other/Special Instructions: 1. You were in the hospital for management of acute bronchitis complicated by an acute exacerbation of COPD and acute on chronic respiratory failure with hypoxia. Your condition has improved with antibiotics and steroids provided in the hospital. You are back to your usual amount of supplemental oxygen and please continue to use this at home. I do recommend additional antibiotics and steroids after hospital discharge to complete a course of treatment for the infection and breathing difficulties. Please take prednisone 40 mg once daily for 3 days. Your first dose will be due tomorrow morning. For antibiotics, please take both cefdinir and doxycycline twice daily with food. Your first dose outside of the hospital will be due tonight. 2. Continue your usual home medications as previously prescribed. 3. I have placed a referral to home health care. They will provide nursing and physical therapy services to help ease your transition home. 4. Follow up with your primary care provider in 1 to 2 weeks to ensure that you continue to improve after the hospital stay. - Discharge Plan *PRESCRIPTION DRUG MONITORING PROGRAM REVIEWED*: Not Applicable *COPY OF PRESCRIPTION DRUG MONITORING REPORT IN PATIENT CORY: Not Applicable Prescriptions/Med Rec: Doxycycline Hyclate 100 mg PO BID #8 capsule Cefdinir [Omnicef] 300 mg PO BID #8 cap predniSONE [Prednisone] 40 mg PO DAILY #6 tablet Home Medications: Home Meds Aspirin [Adult Low Dose Aspirin EC] 81 mg PO DAILY 01/03/16 [History] Citalopram Hydrobromide [Celexa] 20 mg PO DAILY 01/03/16 [History] Clopidogrel [Plavix] 75 mg PO DAILY 01/03/16 [History] atorvaSTATin [Lipitor] 20 mg PO BEDTIME 01/03/16 [History] Albuterol Sulfate [Proair Hfa] 1 - 2 puff IH Q4H PRN 10/14/19 [History] Albuterol/Ipratropium [DuoNeb 3.0-0.5 MG/3 ML] 3 ml IH Q4H PRN 10/14/19 [History] Amoxicillin/Clavulanate K [Augmentin 875-125 MG] 1 tab PO BID 07/11/21 [History] Calcium Carb/Vit D3/Minerals [Calcium 600+D Plus Minerals] 1 tab PO BID 07/11/21 [History] Multivit with Calcium,Iron,Min [One Daily Women's] 1 tab PO DAILY 07/11/21 [History] traMADol [Ultram] 1 tab PO Q6H PRN 07/11/21 [History] Cefdinir [Omnicef] 300 mg PO BID #8 cap 07/13/21 [Rx] Doxycycline Hyclate 100 mg PO BID #8 capsule 07/13/21 [Rx] predniSONE [Prednisone] 40 mg PO DAILY #6 tablet 07/13/21 [Rx] Oxygen Therapy Mode: Nasal Cannula Oxygen Flow Rate (L/min): 2 Patient Handouts: Cefdinir Capsules, Acute Bronchitis, Adult, [id number], Doxycycline tablets or capsules, Prednisone tablets Referrals: Javed Ayala MD [Physician] - 07/24/21 1:40 pm (1-2 weeks -follow-up hospital stay for acute bronchitis and COPD exacerbation. Please arrive 15 minutes early to register for your appointment.) - Discharge Summary/Plan Comment DC Time >30 min.: No Total # of Minutes for Discharge Time: 20 - Patient Data Vitals - Most Recent: Last Vital Signs Temp 36.1 C 07/13/21 08:52 Pulse 82 07/13/21 08:52 Resp 22 H 07/13/21 08:52 BP 148/59 H 07/13/21 08:52 Pulse Ox 93 L 07/13/21 08:52 Weight - Most Recent: 47.2 kg I&O - Last 24 hours: Intake & Output 07/12/21 07/13/21 07/13/21 22:59 06:59 14:59 Intake Total 50 Balance 50 Lab Results - Last 24 hrs: Laboratory Results - last 24 hr 07/11/21 07/13/21 07/13/21 Range/Units 09:45 05:15 05:15 WBC 15.8 H (4.5-11.0) K/uL RBC 3.15 L (3.30-5.50) M/uL Hgb 10.0 L (12.0-15.0) g/dL Hct 30.8 L (36.0-48.0) % MCV 98 (80-98) fL MCH 32 H (27-31) pg MCHC 33 (32-36) % Plt Count 188 (150-400) K/uL Sodium 137 L (140-148) mmol/L Potassium 4.6 (3.6-5.2) mmol/L Chloride 102 (100-108) mmol/L Carbon Dioxide 29 (21-32) mmol/L Anion Gap 10.6 (5.0-14.0) mmol/L BUN 32 H (7-18) mg/dL Creatinine 1.0 (0.6-1.0) mg/dL Est Cr Clr Drug Dosing 34.38 mL/min Estimated GFR (MDRD) 54 L (>60) Glucose 107 H (74-106) mg/dL Calcium 8.1 L (8.5-10.1) mg/dL Urine Color Yellow (YELLOW) Urine Appearance Slightly cloudy A (CLEAR) Urine pH 7.0 (5.0-8.0) Ur Specific [place] 1.020 (1.008-1.030) Urine Protein Trace H (NEGATIVE) mg/dL Urine Glucose (UA) Negative (NEGATIVE) mg/dL Urine Ketones Negative (NEGATIVE) mg/dL Urine Occult Blood Negative (NEGATIVE) Urine Nitrite Negative (NEGATIVE) Urine Bilirubin Negative (NEGATIVE) Urine Urobilinogen 0.2 (0.2-1.0) EU/dL Ur Leukocyte Esterase Small H (NEGATIVE) Urine RBC Not seen (0-5) Urine WBC 0-5 (0-5) Ur Epithelial Cells Moderate Amorphous Sediment Few Urine Bacteria Few Urine Mucus Not seen CHERYL Results - Last 24 hrs: Microbiology 07/11/21 23:00 Aerobic Blood Culture - Preliminary Blood - Arm, Left NO GROWTH AFTER 1 DAY Anaerobic Blood Culture - Preliminary NO GROWTH AFTER 1 DAY 07/11/21 22:35 Aerobic Blood Culture - Preliminary Blood - Arm, Left NO GROWTH AFTER 1 DAY Anaerobic Blood Culture - Preliminary NO GROWTH AFTER 1 DAY Med Orders - Current: Current Medications Albuterol (Albuterol 0.083% 2.5 Mg/3 Ml Neb Soln) 2.5 mg NEB Q2H PRN PRN Reason: Shortness Of Breath/Wheezing Albuterol/Ipratropium (Albuterol/Ipratropium 3.0-0.5 Mg/3 Ml Neb Soln) 3 ml NEB QIDRT [facility] Last Admin: 07/13/21 07:26 Dose: 3 ml Documented by: Aspirin (Aspirin 81 Mg Tab.Ec) 81 mg PO DAILY [facility] Last Admin: 07/13/21 08:25 Dose: 81 mg Documented by: Bisacodyl (Bisacodyl 5 Mg Tab) 5 mg PO DAILY PRN PRN Reason: Constipation Citalopram Hydrobromide (Citalopram 20 Mg Tab) 20 mg PO DAILY [facility] Last Admin: 07/13/21 08:22 Dose: 20 mg Documented by: Clopidogrel Bisulfate (Clopidogrel 75 Mg Tab) 75 mg PO DAILY [facility] Last Admin: 07/13/21 08:23 Dose: 75 mg Documented by: Docusate Sodium (Docusate Sodium 100 Mg Cap) 100 mg PO BID PRN PRN Reason: Constipation Doxycycline Hyclate (Doxycycline 100 Mg Cap) 100 mg PO Q12H [facility] Last Admin: 07/12/21 21:02 Dose: 100 mg Documented by: Ceftriaxone Sodium 1 gm/ (Sodium Chloride) 50 mls @ 100 mls/hr IV Q24H [facility] Last Admin: 07/12/21 22:32 Dose: 100 mls/hr Documented by: Morphine Sulfate (Morphine 2 Mg/Ml Syringe) 2 mg IVPUSH Q2H PRN PRN Reason: Pain (severe 7-10) Last Admin: 07/12/21 08:05 Dose: 2 mg Documented by: Nicotine (Nicotine 21 Mg/24 Hr Patch) 21 mg TRDERM DAILY PRN PRN Reason: nicotine craving Last Admin: 07/12/21 16:43 Dose: 21 mg Documented by: Ondansetron HCl (Ondansetron 4 Mg Tab.Dis) 4 mg PO Q6H PRN PRN Reason: Nausea able to take PO Ondansetron HCl (Ondansetron 4 Mg/2 Ml Sdv) 4 mg IV Q4H PRN PRN Reason: Nausea/Vomiting Pantoprazole Sodium (Pantoprazole 40 Mg Tab.Cr) 40 mg PO ACBREAKFAST [facility] Last Admin: 07/13/21 08:25 Dose: 40 mg Documented by: Prednisone (Prednisone 20 Mg Tab) 40 mg PO WITHBREAKFAST [facility] Last Admin: 07/13/21 08:22 Dose: 40 mg Documented by: Tramadol HCl (Tramadol 50 Mg Tab) 50 mg PO Q6H PRN PRN Reason: Pain Discontinued Medications Albuterol (Albuterol 0.083% 2.5 Mg/3 Ml Neb Soln) 2.5 mg NEB ONETIME ONE Stop: 07/11/21 21:58 Last Admin: 07/11/21 22:21 Dose: 2.5 mg Documented by: Albuterol (Albuterol 0.083% 2.5 Mg/3 Ml Neb Soln) 2.5 mg NEB Q4H PRN PRN Reason: Shortness Of Breath;wheezing Last Admin: 07/12/21 02:01 Dose: 2.5 mg Documented by: Albuterol (Albuterol 0.083% 2.5 Mg/3 Ml Neb Soln) 2.5 mg NEB Q1H PRN PRN Reason: Shortness of Breath Last Admin: 07/12/21 05:00 Dose: 2.5 mg Documented by: Albuterol/Ipratropium (Albuterol/Ipratropium 3.0-0.5 Mg/3 Ml Neb Soln) 3 ml NEB QID [facility] Last Admin: 07/12/21 06:45 Dose: 3 ml Documented by: Albuterol/Ipratropium (Albuterol/Ipratropium 3.0-0.5 Mg/3 Ml Neb Soln) 3 ml NEB Q4H PRN PRN Reason: BREATHING DIFFICULTY Sodium Chloride (Normal Saline) 1,000 mls @ 125 mls/hr IV ASDIRECTED [facility] Last Admin: 07/11/21 23:10 Dose: 125 mls/hr Documented by: Doxycycline Hyclate 100 mg/ (Sodium Chloride) 100 mls @ 100 mls/hr IV Q12H [facility] Last Admin: 07/11/21 23:17 Dose: 100 mls/hr Documented by: Sodium Chloride (Normal Saline) 1,000 mls @ 75 mls/hr IV ASDIRECTED [facility] Doxycycline Hyclate 100 mg/ (Sodium Chloride) 100 mls @ 100 mls/hr IV Q12H [facility] Methylprednisolone Sodium Succinate (Methylprednisolone Sodium Succinate 125 Mg/2 Ml Sdv) 62.5 mg IV Q6H [facility] Stop: 07/12/21 12:00 Last Admin: 07/12/21 08:04 Dose: 62.5 mg Documented by: Prednisone (Prednisone 20 Mg Tab) 20 mg PO ONETIME ONE Stop: 07/12/21 17:01 Last Admin: 07/12/21 16:35 Dose: 20 mg Documented by:
[2021-07-13] MEDS: Doxycycline 100 MG Cap PO SCH (10:43)
[2021-07-13 18:54] VITALS: BP 130/57; PULSE 81
== END 2021-07-13 18:00 | disposition home health service (06) | DRG 189 ==
LOC: JP.ED 20:42 → JP.MS 07-12 00:33
PROVIDERS: ADMIT Internal Medicine; ATTEND Internal Medicine
DX: J96.21 Acute and chronic respiratory failure with hypoxia (principal); J44.0 Chronic obstructive pulmonary disease with (acute) lower respiratory infection; J44.1 Chronic obstructive pulmonary disease with (acute) exacerbation; J20.9 Acute bronchitis, unspecified; H83.01 Labyrinthitis, right ear; F17.210 Nicotine dependence, cigarettes, uncomplicated; E78.5 Hyperlipidemia, unspecified; H54.7 Unspecified visual loss; E78.00 Pure hypercholesterolemia, unspecified; M81.0 Age-related osteoporosis without current pathological fracture; Z66 Do not resuscitate; I73.9 Peripheral vascular disease, unspecified; Z87.81 Personal history of (healed) traumatic fracture; Z87.19 Personal history of other diseases of the digestive system; Z98.42 Cataract extraction status, left eye; Z98.41 Cataract extraction status, right eye; Z98.890 Other specified postprocedural states; Z90.49 Acquired absence of other specified parts of digestive tract; Z86.73 Personal history of transient ischemic attack (TIA), and cerebral infarction without residual deficits; Z85.3 Personal history of malignant neoplasm of breast; Z88.2 Allergy status to sulfonamides; Z88.8 Allergy status to other drugs, medicaments and biological substances; Z79.02 Long term (current) use of antithrombotics/antiplatelets; Z79.82 Long term (current) use of aspirin; Z79.899 Other long term (current) drug therapy
CPT/HCPCS: 36415; 71045 ×2; 80053; 81001; 82150; 82803; 83605; 83690; 83735; 85025; 86140; 87040 ×2; 94640; 96365; 96367; 99285; J0696; J3490; J7030; 36600; 51798; 80048; 85027; 94667; 94668; 94762; A9270-GY; J2270; J2930; J7512; J7620-GY

== ENCOUNTER 2021-08-31 12:42 | Emergency (ER) | payer MEDICARE ==
--- NOTE | 2021-08-31 12:54 | EDM.PDOC ---
ED HPI GENERAL MEDICAL PROBLEM - General Chief Complaint: Cardiovascular Problem Stated Complaint: CHEST PAINS Time Seen by Provider: 08/31/21 13:05 Source of Information: Reports: Patient, Old Records History Limitations: Reports: No Limitations - History of Present Illness INITIAL COMMENTS - FREE TEXT/NARRATIVE: 75 yo female with COPD presents with onset about 0500h today of sharp L anterior chest pains that resolved completely shortly after arrival in the ER. She says her breathing is about normal for her. No fever, nausea, or diaphoresis. No calf pain or LE edema. Onset: Today, Sudden Onset Date: 08/31/21 Duration: Hour(s):, Constant Location: Reports: Chest Quality: Reports: Sharp Severity: Moderate Improves with: Reports: Other (gone in ER without tx) Worsens with: Reports: Breathing (amberly deep breathing) Context: Reports: Other (See HPI) Associated Symptoms: Reports: No Other Symptoms Treatments [employer]: Reports: Other (see below) (none) - Related Data Allergies Allergy/AdvReac Type Severity Reaction Status Date / Time acetaminophen [From Tylenol] Allergy Shortness Verified 08/31/21 13:09 of Breath Sulfa (Sulfonamide Allergy Cannot Verified 08/31/21 13:09 Antibiotics) Remember lactose AdvReac Diarrhea Verified 08/31/21 13:09 Home Meds: Home Meds Aspirin [Adult Low Dose Aspirin EC] 81 mg PO DAILY 01/03/16 [History] Citalopram Hydrobromide [Celexa] 20 mg PO DAILY 01/03/16 [History] Clopidogrel [Plavix] 75 mg PO DAILY 01/03/16 [History] atorvaSTATin [Lipitor] 20 mg PO BEDTIME 01/03/16 [History] Albuterol Sulfate [Proair Hfa] 1 - 2 puff IH Q4H PRN 10/14/19 [History] Albuterol/Ipratropium [DuoNeb 3.0-0.5 MG/3 ML] 3 ml IH Q4H PRN 10/14/19 [History] Calcium Carb/Vit D3/Minerals [Calcium 600+D Plus Minerals] 1 tab PO BID 07/11/21 [History] Multivit with Calcium,Iron,Min [One Daily Women's] 1 tab PO DAILY 07/11/21 [History] traMADol [Ultram] 1 tab PO Q6H PRN 07/11/21 [History] Past Medical History HEENT History: Reports: Impaired Vision Cardiovascular History: Reports: High Cholesterol, PVD, Other (See Below) Other Cardiovascular History: Dyslipidemia, cardiac stenosis Respiratory History: Reports: Bronchitis, Recurrent, COPD, SOB, Other (See Below) Other Respiratory History: O2 at 2L Gastrointestinal History: Reports: Cholelithiasis SKATESMAN History: Reports: Musculoskeletal History: Reports: Osteoporosis, Other (See Below) Other Musculoskeletal History: Hip fracture, right jaw fracture Neurological History: Reports: CVA Oncologic (Cancer) History: Reports: Breast Dermatologic History: Reports: Other (See Below) Other Dermatologic History: Dry Skin - Infectious Disease History 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, Other, Shingles - Past Surgical History HEENT Surgical History: Reports: Cataract Surgery, Tonsillectomy Cardiovascular Surgical History: Reports: Carotid Endarterectomy Respiratory Surgical History: Reports: None GI Surgical History: Reports: Appendectomy, Cholecystectomy, Colonoscopy, Hernia, Abdominal Female Surgical History: Reports: Breast Biopsy, Mastectomy Musculoskeletal Surgical History: Reports: Hip Replacement Social & Family History - Family History Family Medical History: No Pertinent Family History Oncologic: Reports: Breast, Lung - Caffeine Use Caffeine Use: Reports: Coffee, Soda, Tea - Living Situation & Occupation Living situation: Reports: ( 5 years ago, lives alone with [employer]ATION WORK[employer] assistance 3 times a week. Has 3 adult children. Daughter Rani assist with care decisions.) ED ROS GENERAL - Review of Systems Review Of Systems: See Below Constitutional: Reports: No Symptoms HEENT: Reports: No Symptoms Respiratory: Reports: Pleuritic Chest Pain Cardiovascular: Reports: No Symptoms Endocrine: Reports: No Symptoms GI/Abdominal: Reports: No Symptoms Musculoskeletal: Reports: No Symptoms Skin: Reports: No Symptoms ED EXAM, GENERAL - Physical Exam Exam: See Below Exam Limited By: No Limitations General Appearance: Alert, WD/WN, No Apparent Distress, Thin Eye Exam: Bilateral Eye: Normal Inspection Ears: Normal External Exam, Normal Canal Ear Exam: Bilateral Ear: Auricle Normal, Canal Normal Nose: Normal Inspection, No Blood Throat/Mouth: Normal Inspection, Normal Lips, Normal Oropharynx, Normal Voice, No Airway Compromise Head: Atraumatic, Normocephalic Neck: Normal Inspection Respiratory/Chest: No Respiratory Distress, Lungs Clear, No Accessory Muscle Use, Decreased Breath Sounds Cardiovascular: Regular Rate, Rhythm, No Edema GI/Abdominal: Soft, Non-Tender Extremities: Normal Inspection, Normal Range of Motion, Non-Tender, No Pedal Edema Neurological: Alert, Oriented, CN II-XII Intact, Normal Cognition, No Motor/Sensory Deficits Psychiatric: Normal Affect, Normal Mood Skin Exam: Warm, Dry, Intact, Normal Color, No Rash #1 Interpretation EKG Date: 08/31/21 Time: 12:35 Rhythm: NSR Rate (Beats/Min): 64 Kimberly: Normal P-Wave: Present QRS: Normal ST-T: Normal QT: Normal Comparison: NA - No Prior EKG Course - Vital Signs Last Recorded V/S: Last Vital Signs Temp 36.4 C 08/31/21 12:54 Pulse 66 08/31/21 13:11 Resp 13 08/31/21 13:11 BP 107/51 L 08/31/21 13:11 Pulse Ox 99 08/31/21 13:11 - Orders/Labs/Meds Orders: Active Orders 24 hr Category Date Time Status Cardiac Monitoring [RC] .As Directed Care 08/31/21 12:52 Active EKG 12 Lead [EK] Routine Ther 08/31/21 12:52 Ordered Labs: Laboratory Tests 08/31/21 08/31/21 Range/Units 12:52 12:52 WBC 11.1 H (4.5-11.0) K/uL RBC 4.17 (3.30-5.50) M/uL Hgb 13.1 D (12.0-15.0) g/dL Hct 41.0 (36.0-48.0) % MCV 98 (80-98) fL MCH 31 (27-31) pg MCHC 32 (32-36) % Plt Count 207 (150-400) K/uL Sodium 134 L (140-148) mmol/L Potassium 4.6 (3.6-5.2) mmol/L Chloride 97 L (100-108) mmol/L Carbon Dioxide 29 (21-32) mmol/L Anion Gap 12.6 (5.0-14.0) mmol/L BUN 19 H (7-18) mg/dL Creatinine 0.9 (0.6-1.0) mg/dL Est Cr Clr Drug Dosing 38.08 mL/min Estimated GFR (MDRD) > 60 (>60) Glucose 90 (74-106) mg/dL Calcium 8.6 (8.5-10.1) mg/dL Troponin I < 0.017 (0.000-0.056) ng/mL Meds: Medications Discontinued Medications Generic Name Dose Route Start Last Admin Trade Name Mili PRN Reason Stop Dose Admin Aspirin 324 mg 08/31/21 12:55 08/31/21 13:20 Aspirin 81 Mg Tab.Chew PO 08/31/21 12:56 324 mg ONETIME ONE Administration Departure - Departure Time of Disposition: 13:44 Disposition: Home, Self-Care 01 Condition: Good Clinical Impression: Pleuritic chest pain Referrals: Javed Ayala MD [Primary Care Provider] - Forms: ED Department Discharge Additional Instructions: Continue your usual medications. Recheck with your provider as needed. Sepsis Event Note (ED) - Focused Exam Vital Signs: Vital Signs Temp Pulse Resp BP Pulse Ox 08/31/21 13:11 66 13 107/51 L 99 08/31/21 12:54 36.4 C 67 97 H 123/53 L 08/31/21 12:51 36.4 C 67 97 H 123/53 L - My Orders Last 24 Hours: My Active Orders 08/31/21 12:52 Cardiac Monitoring [RC] .As Directed EKG 12 Lead [EK] Routine - Assessment/Plan Last 24 Hours: My Active Orders 08/31/21 12:52 Cardiac Monitoring [RC] .As Directed EKG 12 Lead [EK] Routine
[2021-08-31] MEDS ORDERED: Aspirin 81 MG Tab.Chew PO ONE (12:55)
[2021-08-31 13:17] VITALS: BP 107/51; PULSE 66
== END 2021-08-31 14:05 | disposition home or self-care (01) ==
LOC: JP.ED 12:42
DX: R07.81 Pleurodynia (principal); E78.00 Pure hypercholesterolemia, unspecified; J44.9 Chronic obstructive pulmonary disease, unspecified; Z88.2 Allergy status to sulfonamides; Z91.011 Allergy to milk products; Z88.6 Allergy status to analgesic agent; Z79.82 Long term (current) use of aspirin; Z79.02 Long term (current) use of antithrombotics/antiplatelets; Z79.899 Other long term (current) drug therapy
CPT/HCPCS: 36415; 80048; 84484; 85027; 93005; 99284; A9270